=== PATIENT | female | born 2000 | race Caucasian/White ===

== ENCOUNTER 2020-06-21 16:38 | Emergency (ER) | payer BC, MEDICAID, SELFPAY ==
--- NOTE | ~2020-06-21 | CT_ITS ---
EXAMINATION: CT abdomen pelvis wo con EXAM DATE: 06/21/2020 19:13 INDICATION: Right flank pain. TECHNIQUE: Spiral CT of the abdomen and pelvis was performed without contrast. Axial, coronal and sag ittal images were reviewed. The dose-length product (DLP) for this examination was 179.64 mGy-cm. T he exposure was tailored according to patient size (auto mA exposure control), and iterative reconstr uction (ASIR) was used as additional dose reduction technique. There is no prior study for compariso n. FINDINGS: Faint medullary nephrocalcinosis. There is no nephrolithiasis or hydronephrosis. There is IUD which appears to be centrally located within the endometrium, expected position. The bladder is unremarkable. The liver, spleen, adrenal glands and pancreas are unremarkable. Gallbladder is unre markable. No biliary obstruction. There is no retroperitoneal or pelvic lymphadenopathy. The appendix is normal. The stomach and small bowel are unremarkable. There is expected amount of c olonic stool. No free intraperitoneal gas. The heart is normal in size. There are no pericardial or pleural effusions. The lung bases are unremarkable. The bones are unremarkable. IMPRESSION: 1. Faint medullary nephrocalcinosis. No discrete nephrolithiasis or acute findings. 2. IUD in position. Reviewed, dictated and finalized at location A. IMPRESSION: 1. Faint medullary nephrocalcinosis. No discrete nephrolithiasis or acute find ings. 2. IUD in position.
[2020-06-21 17:12] VITALS: BP 116/64; PULSE 55; RESP 20; TEMP 36.9; O2SAT 100
[2020-06-21 17:41] LABS: Basophils Absolute Auto 0.1 K/mm3 (0.0-0.1); Basophils Percent Auto 0.9 % (0.2-1.2); Eosinophils Absolute Auto 0.3 K/mm3 (0-0.3); Eosinophils Percent Auto 3.9 % (0-4.4); Hematocrit 42.9 % (37.0-47.0); Hemoglobin 13.8 g/dL (12.0-15.0); Immature Granulocyte Absolute 0.02 K/mm3 (0.00-0.031); Immature Granulocyte Percent A 0.3 % (0-0.5); Lymphocytes Absolute Auto 3.17 K/mm3 (0.9-3.2); Lymphocytes Percent Auto 40.4 % (18.3-44.2); Mean Corpuscular HGB Conc 32.2 g/dl (32-36); Mean Corpuscular Hemoglobin 27.4 pg (26-34); Mean Corpuscular Volume 85.3 fl (80-100); Mean Platelet Volume 11.4 fl (7.4-10.4); Monocytes Absolute Auto 0.5 K/mm3 (0.1-0.6); Monocytes Percent Auto 6.8 % (2.6-8.5); Neutrophils Absolute Auto 3.8 K/mm3 (1.3-6.7); Neutrophils Percent Auto 47.7 % (45.5-73.1); Platelet Count Result 246 k/mm3 (150-375); Red Blood Count 5.03 M/mm3 (4.2-5.4); Red Cell Distribution Width 14.4 % (11.5-14.5); White Blood Count 7.9 K/mm3 (4.5-10.0)
--- NOTE | 2020-06-21 17:43 | ED.ABDPAIN ---
HPI - Abdominal Pain General Chief Complaint: Abdominal Pain Stated Complaint: from UC, R flank pain Time Seen by Provider: 06/21/20 17:17 Source: patient Mode of arrival: ambulatory Limitations: no limitations History of Present Illness HPI narrative: This is a 19 year old female that presents to the ER for right flank pain x 1 week. Reports the pain is sharp. It is worse with movement. She took ibuprofen at home with little relief. Denies fever, abdominal pain, nausea, vomiting, or hematuria. Related Data Home Medications Medication Instructions Recorded Confirmed No Home Medications 06/21/20 06/21/20 Allergies Allergy/AdvReac Type Severity Reaction Status Date / Time No Known Allergies Allergy Verified 06/21/20 17:22 Review of Systems Review of Systems: Narrative: CONSTITUTIONAL: Denies fever GASTROINTESTINAL: Denies abdominal pain, nausea, vomiting GENITOURINARY: Denies dysuria or hematuria. MUSCULOSKELETAL: Reports back pain, joint pain, and myalgia. All systems reviewed & are unremarkable except as noted in HPI and below PMFSH Past Medical History Medical History (Updated 06/21/20 @ 20:14 by Nichole Bowman PA-C) No active medical problems Social History Social History (Updated 06/21/20 @ 17:48 by Nichole Bowman PA-C) Smoking status: Never smoker Exam Narrative: Exam Narrative: GENERAL: Well-appearing, well-nourished, and in no acute distress. HEAD: Normocephalic, atraumatic. EYES: EOMI. CHEST: Clear to auscultation. No respiratory distress. No wheezes rales or rhonchi HEART: Regular rate and rhythm. No murmur heard. Normal peripheral pulses. ABDOMEN: Soft, nontender, nondistended, normal active bowel sounds. No CVA tenderness EXTREMITIES: Normal range of motion. No edema. SKIN: Warm, dry, no rash. NEURO: No focal deficits. Alert and oriented x3. PSYCH: Normal mood and affect Course Vital Signs Vital signs: Vital Signs Temperature 98.4 F 06/21/20 17:12 Pulse Rate 55 L 06/21/20 17:12 Respiratory Rate 20 06/21/20 17:12 Blood Pressure 116/64 06/21/20 17:12 Pulse Oximetry 100 06/21/20 17:12 Temperature 98.4 F 06/21/20 17:12 Pulse Rate 67 06/21/20 19:07 Respiratory Rate 18 06/21/20 19:07 Blood Pressure 120/67 06/21/20 19:07 Pulse Oximetry 98 06/21/20 19:07 MDM - Abdominal Pain MDM Narrative Medical decision making narrative: Patient presents the emergency department for right flank pain. She is afebrile and nontoxic-appearing. CBC and metabolic panel without concerning findings. UA with red blood cells, 4-6 white blood cells, and trace bacteria. Also with many squamous epithelial cells. This will go for a culture. Patient is asymptomatic. Bedside test is negative. CT of the abdomen and pelvis is without acute intra-abdominal findings. IUD is in position. Patient updated on case findings. She was instructed to follow-up with her primary care doctor. Patient is stable and felt appropriate for further outpatient evaluation. She was given warnings to return to the ER Lab Data Attestation: I reviewed the patient's lab results. Result diagrams: 06/21/20 17:29 06/21/20 17:29 Labs: Lab Results 06/21/20 06/21/20 06/21/20 Range/Units 17:29 17:29 17:29 WBC 7.9 (4.5-10.0) K/mm3 RBC 5.03 (4.2-5.4) M/mm3 Hgb 13.8 (12.0-15.0) g/dL Hct 42.9 (37.0-47.0) % MCV 85.3 (80-100) fl MCH 27.4 (26-34) pg MCHC 32.2 (32-36) g/dl RDW 14.4 (11.5-14.5) % Plt Count 246 (150-375) k/mm3 MPV 11.4 H (7.4-10.4) fl Immature Gran % (Auto) 0.3 (0-0.5) % Neut % (Auto) 47.7 (45.5-73.1) % Lymph % (Auto) 40.4 (18.3-44.2) % [place] % (Auto) 6.8 (2.6-8.5) % Eos % (Auto) 3.9 (0-4.4) % Baso % (Auto) 0.9 (0.2-1.2) % Lymph # (Auto) 3.17 (0.9-3.2) K/mm3 [place] # (Auto) 0.5 (0.1-0.6) K/mm3 Eos # (Auto) 0.3 (0-0.3) K/mm3 Baso # (Auto) 0.1 (0.
[2020-06-21 17:47] LABS: Add Urine Microscopic? YES; Appearance Urine Cloudy (Clear); Bacteria Urine Trace /hpf; Bilirubin Urine Negative (Negative); Blood Urine 3+ (Negative); Color Urine Yellow (Yellow); Glucose Urine UA Negative (Negative); Ketones Urine Negative (Negative); Leukocyte Esterase Ur Trace LEU/UL (Negative); Mucus Urine Few /lpf; Nitrate Urine Negative (Negative); Protein Urine 1+ mg/dL (Negative); RBC Urine >75 /hpf (0-2); Specific Grav Ur 1.028 (1.001-1.035); Squamous Epithelial Cell Urine Many /hpf (Few); Urobilinogen Urine Negative mg/dL (<2.0)
--- NOTE | 2020-06-21 17:48 | PC.NURSE ---
called lab to add hepatic
[2020-06-21 17:56] LABS: Alanine Aminotransferase 10 U/L (4-35); Albumin Level 4.6 g/dL (3.5-5.1); Alkaline Phosphatase 39 U/L (38-126); Anion Gap 10 mmol/L (8-16); Aspartate Amino Transferase 25 U/L (14-36); Bilirubin,Total 0.5 mg/dL (0.2-1.3); Blood Urea Nitrogen 14 mg/dL (7-17); Calcium 9.1 mg/dL (8.4-10.2); Carbon Dioxide 25 mmol/L (22-30); Chloride 103 mmol/L (98-107); Estimated CRCL calculation 87 ml/min; Estimated Glomerular Filt Rate > 60; Glucose 91 mg/dL (65-105); Sodium 138 mmol/L (137-145)
[2020-06-21] MEDS: ACETAMINOPHEN 500 MG TABLET 1000 MG PO (18:19)
--- NOTE | 2020-06-21 18:50 | PC.NURSE ---
Pt in Cat scan at this time
[2020-06-21 19:07] VITALS: BP 120/67; PULSE 67; RESP 18; O2SAT 98
[2020-06-21 20:37] VITALS: BP 122/78; PULSE 78; RESP 18; O2SAT 98
== END 2020-06-21 20:38 | disposition home or self-care (01) ==
PROVIDERS: Physician Assistant; Emergency Provider Emergency Medicine
DX: R10.9 Unspecified abdominal pain (principal)
CPT/HCPCS: 36415; 74176; 80048; 80076; 81001; 81025; 85025; 87086; 87088; 99284; A9270

== ENCOUNTER 2021-10-05 14:31 | Observation (INO) | payer BC, MEDICAID, SELFPAY ==
--- NOTE | 2021-10-05 14:57 | OBADM ---
This patient, Rosas Estrada, admitted to the OB room OB Post 116 for observation. Patient/family oriented to hospital policies and general routines including ID bracelet, bed and alarms, visiting hours, pain management, procedures, bathroom and other care routines, personal items, smoking policy, room service/diet, and visiting hours. Patient/Family are encouraged to report perceived risks to care and to ask questions if they do not understand what they are told or what they should do.
[2021-10-05 15:01] VITALS: BP 113/72; PULSE 82
[2021-10-05 15:40] LABS: Add Urine Microscopic? YES; Amorphous Sediment Urine Few; Appearance Urine Cloudy (Clear); Bacteria Urine Trace /hpf; Bilirubin Urine Negative (Negative); Blood Urine Negative (Negative); Color Urine Yellow (Yellow); Glucose Urine UA Negative (Negative); Ketones Urine Negative (Negative); Leukocyte Esterase Ur 3+ LEU/UL (NEGATIVE); Mucus Urine Rare /lpf; Nitrate Urine Negative (Negative); Protein Urine 1+ mg/dL (Negative); Specific Grav Ur 1.018 (1.001-1.035); Squamous Epithelial Cell Urine Many /hpf (Few); Urobilinogen Urine Negative mg/dL (<2.0); WBC Urine >75 /hpf (0-3)
[2021-10-05 15:56] VITALS: BP 113/72; PULSE 84
--- NOTE | 2021-10-05 15:59 | PC.NURSE ---
1543- SPoke with Dr. Craig, urine reviewed and NST reveiwed. ROM plus negative. Orders received to discharge to home with Macrobid 100mg, BID x7 days.
--- NOTE | 2021-10-08 17:40 | PM.OBTRLD ---
OB - Triage/Final Diagnosis Visit Information Comments/Additional reasons for admission: I have assessed the risk for this patient, Rosas Estrada, and determined that she would benefit from observation care. Evaluation Laboratory results: Laboratory Tests 10/05/21 15:22 Urine Color Yellow Urine Appearance Cloudy H Urine pH 8.0 Ur Specific [place] 1.018 Urine Protein 1+ H Urine Glucose (UA) Negative Urine Ketones Negative Ur Blood (Man) Negative Urine Nitrate Negative Urine Bilirubin Negative Urine Urobilinogen Negative Ur Leukocyte Esterase 3+ H Urine RBC 3-5 H Urine WBC >75 H Ur Squamous Epith Cells Many H Amorphous Sediment Few H Urine Bacteria Trace Urine Mucus Rare Final Diagnosis (1) Vaginal discharge during in third trimester: Code(s): O26.893 - Other specified related conditions, third trimester; N89.8 - Other specified noninflammatory disorders of vagina Status: Acute
== END 2021-10-05 16:00 | disposition home or self-care (01) ==
PROVIDERS: Admitting Provider Obstetrics & Gynecology; Visit Provider Obstetrics & Gynecology
DX: O26.892 Other specified pregnancy related conditions, second trimester (principal); N89.8 Other specified noninflammatory disorders of vagina; Z3A.27 27 weeks gestation of pregnancy
CPT/HCPCS: 59025; 81001; 87086; 87088; G0378; G0379

== ENCOUNTER 2021-11-22 11:08 | Observation (INO) | payer BC, SELFPAY ==
[2021-11-22] VITALS (9 sets, daily range): BP systolic 104; BP diastolic 69; PULSE 91–135; O2SAT 98–100; BMI 24.5
--- NOTE | ~2021-11-22 | US_ITS ---
EXAMINATION: US OB limited w BPP DATE: 11/22/2021 13:47 INDICATION: Decreased movement. Third trimester. TECHNIQUE: Real-time pelvic ultrasound was performed. COMPARISON: None. FINDINGS: There is a single living fetus in vertex presentation. The placenta is posterior. heart rate i s 149 beats per minute (bpm). The amniotic fluid index is 11.5 cm, which is normal. Biophysical profile performed by the technologist: breathing (30 sec sustained breathing in 30 minutes): 2 out of 2 movement (3 gross body movements in 30 minutes): 2 out of 2 tone (one episode of jwmtplg-jbstjtrbn-nxdcntk limb movement): 2 out of 2 Amniotic fluid pocket (2 cm): 2 out of 2 Total score: 8 out of 8 IMPRESSION: 1. Single living fetus in vertex presentation. 2. Biophysical profile 8 out of 8. Reviewed, dictated and finalized at location B. SHAKER
--- NOTE | 2021-11-22 11:08 | OBADM ---
This patient, Rosas Estrada, admitted to the OB room OB Post 115 for observation. Patient/family oriented to hospital policies and general routines including ID bracelet, bed and alarms, visiting hours, pain management, procedures, bathroom and other care routines, personal items, smoking policy, room service/diet, and visiting hours. Patient/Family are encouraged to report perceived risks to care and to ask questions if they do not understand what they are told or what they should do.
[2021-11-22] MEDS: BETAMETHASONE SOD PHOS/ACETATE 30 MG/5 ML VIAL 12 MG IM (12:40)
[2021-11-22] MEDS: TERBUTALINE SULFATE 1 MG/ML VIAL (14:33)
--- NOTE | 2021-11-23 11:35 | PM.OBTRLD ---
OB - Triage/Final Diagnosis Visit Information Comments/Additional reasons for admission: I have assessed the risk for this patient, Rosas Estrada, and determined that she would benefit from observation care. Evaluation Vital signs: Vital Signs - 24 hr 11/22/21 14:32 11/22/21 14:38 11/22/21 14:43 Pulse Oximetry 100 100 99 11/22/21 14:48 11/22/21 14:53 11/22/21 14:58 Pulse Oximetry 98 98 99 11/22/21 15:03 11/22/21 15:08 Pulse Oximetry 100 100 Final Diagnosis (1) contractions: Code(s): O47.00 - False labor before 37 completed weeks of gestation, unspecified trimester Status: Acute
== END 2021-11-22 15:20 | disposition home or self-care (01) ==
PROVIDERS: Admitting Provider Obstetrics & Gynecology; Visit Provider Obstetrics & Gynecology
DX: O47.03 False labor before 37 completed weeks of gestation, third trimester (principal); Z3A.34 34 weeks gestation of pregnancy
CPT/HCPCS: 76815; 76819; 84112; 96372; G0378; G0379; J0702; J3105

== ENCOUNTER 2021-11-23 14:29 | Observation (INO) | payer BC, MEDICAID, SELFPAY ==
[2021-11-23 15:00] VITALS: BP 115/49; PULSE 98
[2021-11-23 15:02] VITALS: BP 102/55; PULSE 95
[2021-11-23 15:15] VITALS: BP 101/53; PULSE 107
[2021-11-23 15:30] VITALS: BP 106/47; PULSE 97
[2021-11-23 15:42] VITALS: BMI 25.8
[2021-11-23 15:45] VITALS: BP 106/51; PULSE 99
[2021-11-23] MEDS: BETAMETHASONE SOD PHOS/ACETATE 30 MG/5 ML VIAL 12 MG IM (16:01)
--- NOTE | 2021-11-23 16:02 | PC.NURSE ---
Notifed Dr Craig of patient status orders to discharge home
--- NOTE | 2021-11-27 07:05 | PM.OBTRLD ---
OB - Triage/Final Diagnosis Visit Information Comments/Additional reasons for admission: I have assessed the risk for this patient, Rosas Estrada, and determined that she would benefit from observation care. Final Diagnosis (1) Vaginal discharge during in third trimester: Code(s): O26.893 - Other specified related conditions, third trimester; N89.8 - Other specified noninflammatory disorders of vagina Status: Acute
== END 2021-11-23 16:15 | disposition home or self-care (01) ==
PROVIDERS: Admitting Provider Obstetrics & Gynecology; Visit Provider Obstetrics & Gynecology
DX: O26.893 Other specified pregnancy related conditions, third trimester (principal); N89.8 Other specified noninflammatory disorders of vagina; Z3A.34 34 weeks gestation of pregnancy
CPT/HCPCS: 96372; G0378; G0379; J0702

== ENCOUNTER 2021-12-10 13:31 | Inpatient (IN) | payer BC, MEDICAID, SELFPAY ==
[2021-12-10] VITALS (60 sets, daily range): BP systolic 86–128; BP diastolic 50–82; PULSE 63–120; RESP 16–18; TEMP 37–37.1; O2SAT 100; BMI 24.5
--- NOTE | 2021-12-10 14:20 | PC.NURSE ---
Unable to see contractions on monitor. [place] adjusted. FHTs 140 with moderate variabilty, accelerations and no decelerations. SVE 4-5/thick/-1.
--- NOTE | 2021-12-10 15:20 | PC.NURSE ---
Contractions seen q q 2-3 min with moderate intensity, lasting 50-60 sec. FHT 140 with accelerations, moderate variability and no decelerations.
--- NOTE | 2021-12-10 16:20 | PC.NURSE ---
Contractions q 2-3 min lasting 50-60 sec and palpate moderate. FHTs 150 with moderate variability, accelerations and no decelerations.
--- NOTE | 2021-12-10 17:15 | PC.NURSE ---
Dr. Craig on unit. Report given. SVE /1. Orders received to admit for labor.
--- NOTE | 2021-12-10 17:16 | PM.IMHP ---
H&P: HPI History of Present Illness Date/Time: 12/10/21 17:16 Stephanie is a 21yo @ 37.2wks who presented to L&D for routine NST due to severe IUGR. She was found to be jordan regularly. No vaginal bleeding or leakage of fluid. She made change from 3cm last week to 5cm today. Good movement. Her is complicated by: - Severe IUGR w/ AC <2%ile, undergoing ANT - Mild anemia Chief Complaint: contractions Review of Systems Review of Systems: All systems reviewed & are unremarkable except as noted in HPI and below (HPI) FORMERLY [facility], [facility] Past Medical History Medical History Encounter for removal of intrauterine contraceptive device (IUD) (~09/2020) HSV-1 (herpes simplex virus 1) infection No active medical problems Family History Family History Grandparent Diabetes mellitus Hypertension Social History Social History Smoking status: Never smoker Alcohol intake: never Substance use: never Gender identity (if verbalized by the patient): Female Sexual Orientation (if Verbalized by the Patient): Straight or Heterosexual Meds Home Medications and Allergies Home Medications Medication Instructions Recorded Confirmed Type [id number] fum-folic ac-om3 1 pkg PO DAILY 10/05/21 11/22/21 History Allergies Allergy/AdvReac Type Severity Reaction Status Date / Time No Known Allergies Allergy Verified 11/22/21 10:15 Exam Const: General: cooperative, healthy appearing, comfortable and no acute distress Resp: Effort & Inspection: normal respiratory effort Cardio: Rate: regular rate GI: GI Palp: Yes Soft to palpation and No Tenderness to palpation present (GI) : Other: FHT's: 140's/ mod migue/ + accels/ no decels - cat 1 TOCO: ctx's q2-3min Cervix: 5/70/-2; bag bulging Membranes: intact Presentation: cephalic Skin: General skin exam: normal color Neuro: General: patient oriented x3 Extrem: General: normal to inspection Psych: Appearance: grossly normal Affect: normal affect Attitude: cooperative Assessment and Plan Assessment and plan (1) IUGR (intrauterine growth restriction): Status: Acute (2) Uterine contractions: Code(s): O47.9 - False labor, unspecified Status: Acute Additional Plan - Admit to L&D for labor/augmentation due to severe IUGR >37wks - Pitocin if contractions space out or no cervical change - Continuous heart monitoring; currently reassuring - GBS negative - anesthesia consult PRN pain
--- NOTE | 2021-12-10 17:20 | PC.NURSE ---
Contractions q 1-4 min with moderate intensity lasting 50-60 sec. FHTs 145 with moderate variability, accelerations and no decelerations.
--- NOTE | 2021-12-10 17:26 | WPDHPUPDATE1 ---
History and Physical Update Update Date/Time: 12/10/21 17:26 History and Physical has been reviewed, including an updated exam of the patient. There are NO changes in the patient's condition. Risks, benefits, and alternatives have been discussed and questions answered. Patient agrees to proceed with procedure.
--- NOTE | 2021-12-10 17:46 | PC.NURSE ---
Pt moved to room 106 for labor.
[2021-12-10] MEDS: LACTATED RINGERS 1,000 ML 999 ML IV CONT ×2 (18:15→19:07)
[2021-12-10 18:27] LABS: Basophils Percent Auto 0.2 % (0.2-1.2); Eosinophils Percent Auto 0.2 % (0-4.4); Hematocrit 33.4 % (37.0-47.0); Hemoglobin 10.6 g/dL (12.0-15.0); Immature Granulocyte Absolute 0.07 K/mm3 (0.00-0.031); Immature Granulocyte Percent A 0.6 % (0-0.5); Lymphocytes Absolute Auto 2.26 K/mm3 (0.9-3.2); Lymphocytes Percent Auto 17.8 % (18.3-44.2); Mean Corpuscular HGB Conc 31.7 g/dl (32-36); Mean Corpuscular Hemoglobin 25.7 pg (26-34); Mean Corpuscular Volume 81.1 fl (80-100); Mean Platelet Volume 10.3 fl (7.4-10.4); Monocytes Absolute Auto 0.8 K/mm3 (0.1-0.6); Monocytes Percent Auto 6.6 % (2.6-8.5); Neutrophils Absolute Auto 9.5 K/mm3 (1.3-6.7); Neutrophils Percent Auto 74.6 % (45.5-73.1); Platelet Count Result 249 k/mm3 (150-375); Red Blood Count 4.12 M/mm3 (4.2-5.4); Red Cell Distribution Width 15.2 % (11.5-14.5); White Blood Count 12.7 K/mm3 (4.5-10.0)
--- NOTE | 2021-12-10 18:39 | LDADM ---
This patient, Rosas Estrada, was admitted to Labor/Delivery/Recovery 106 on 12/10/21 at 13:31. Plans for labor, pain management and were discussed with patient. Patient/family oriented to hospital policies and general routines including ID bracelet, bed and alarms, visiting hours, pain management, procedures, bathroom and other care routines, personal items, smoking policy, room service/diet and guest tray routines, infant security routines, and visiting hours. Patient/Family are encouraged to report perceived risks to care and to ask questions if they do not understand what they are told or what they should do. See OBIX for further documentation.
--- NOTE | 2021-12-10 18:42 | WPDANESEPP ---
Anes - Eval Pre Procedure Procedure: Labor epidural Date/Time: 12/10/21 18:42 Surgeon: Rafa Preop Diagnosis: Abd pain with contractions Pre Op Diagnosis: labor Patient Data Age: 21 Gender: F Height: 1.55 m Weight: 59 kg Last Vital Signs Pulse 63 12/10/21 18:30 BP 114/70 12/10/21 18:30 Allergies Allergy/AdvReac Type Severity Reaction Status Date / Time No Known Allergies Allergy Verified 11/22/21 10:15 Home Medications Medication Instructions Recorded Confirmed Type [id number] fum-folic ac-om3 1 pkg PO DAILY 10/05/21 12/10/21 History Laboratory Tests 12/10/21 12/10/21 12/10/21 18:19 18:19 18:19 WBC 12.7 K/mm3 H K/mm3 (4.5-10.0) RBC 4.12 M/mm3 L M/mm3 (4.2-5.4) Hgb 10.6 g/dL L D g/dL (12.0-15.0) Hct 33.4 % L % (37.0-47.0) MCV 81.1 fl fl (80-100) MCH 25.7 pg L pg (26-34) MCHC 31.7 g/dl L g/dl (32-36) RDW 15.2 % H % (11.5-14.5) Plt Count 249 k/mm3 k/mm3 (150-375) MPV 10.3 fl fl (7.4-10.4) Immature Gran % (Auto) 0.6 % H % (0-0.5) Neut % (Auto) 74.6 % H % (45.5-73.1) Lymph % (Auto) 17.8 % L % (18.3-44.2) [place] % (Auto) 6.6 % % (2.6-8.5) Eos % (Auto) 0.2 % % (0-4.4) Baso % (Auto) 0.2 % % (0.2-1.2) Lymph # (Auto) 2.26 K/mm3 K/mm3 (0.9-3.2) [place] # (Auto) 0.8 K/mm3 H K/mm3 (0.1-0.6) Eos # (Auto) 0.0 K/mm3 K/mm3 (0-0.3) Baso # (Auto) 0.0 K/mm3 K/mm3 (0.0-0.1) Abs Immat Gran (auto) 0.07 K/mm3 H K/mm3 (0.00-0.031) Absolute Neuts (auto) 9.5 K/mm3 H K/mm3 (1.3-6.7) Absolute Nucleated RBC 0.0 K/mm3 K/mm3 (0.0-0.012) Nucleated RBC % 0.0 % % (0.0-0.2) RPR Pending HIV 1&2 Ab/P24 Ag 4thGn Pending Patient hx anesthesia problems: none Family hx anesthesia problems: none Results Review: All pre-operative results and documents have been reviewed as part of the pre-operative evaluation. [facility] Past Medical History Medical History Encounter for removal of intrauterine contraceptive device (IUD) (~09/2020) HSV-1 (herpes simplex virus 1) infection No active medical problems Vaginal discharge during in third trimester Family History Family History Grandparent Diabetes mellitus Hypertension Social History Social History Smoking status: Never smoker Alcohol intake: never Substance use: never Gender identity (if verbalized by the patient): Female Sexual Orientation (if Verbalized by the Patient): Straight or Heterosexual Exam Day of Procedure 12/10/21 18:42 Patient weight: normal Airway: Mallampati scale class II Neurological: alert and oriented
[2021-12-10 19:19] LABS: HIV 1/2 Ab P24 Ag Result Negative (Negative)
--- NOTE | 2021-12-10 20:56 | PM.OBPNLAB ---
Pain Control Date/time seen: 12/10/21 20:56 Pain control: epidural Pelvic Exam Dilation (cm): 6 Effacement (%): 90 station: -1 Amniotic membrane status: Ruptured (AROM, clear 2054) Contractions Monitor mode: External Contraction frequency: 2 (-4) Contraction pattern: Regular Status status: Category l Assessment and Plan Assessment: active labor Plan: continuous present management
--- NOTE | 2021-12-10 21:33 | PM.OBPRVD ---
OB - Delivery Note Procedure Delivery date: 12/10/21 events: Labor Augmentation (IUGR) Intrapartal events: Precipitous Labor < 3 hours Delivery augmentation: rupture of membranes Delivery monitor: external FHT and external uterine Route of delivery: Laceration Description: None Specimen: Yes (placenta) Quantitative Blood Loss (ml): 100 Anesthesia type: Epidural Disposition: floor [place] Baby Date of : 12/10/21 Time of : 21:20 Weeks of gestation at delivery: 37 (.2) gender: Female Weight (pounds): 5 Weight (ounces): 7 presentation: vertex position: Left Occiput Anterior Placenta delivery description: Expressed cord vessel description: 3 Vessels and Delayed Cord Clamping score one minute: 9 score five minutes: 9 Narrative: AROM was performed and she was found to be 6 cm. Approximately 20 minutes later she endorsed significant vaginal pressure and was found to be completely dilated. She pushed for 2 contractions and delivered the head over intact perineum. No nuchal cord was palpated. She easily delivered the infant's shoulders and body without complication. The infant was immediately placed skin to skin and had vigorous cry. Delayed cord clamping was performed. The umbilical cord was then clamped and cut. A segment of the cord was collected for cord gases. The remaining cord blood was collected for typing. With Pitocin running and gentle downward traction on the cord, the placenta delivered without complications. Bimanual massage was performed and good uterine tone and minimal bleeding was noted. She was examined and no lacerations were noted. Sponge, lap, instrument, and needle counts were correct at the end of the procedure. Mom and baby were left bonding in the birthing suite in stable condition. [facility] Delivery Billing Delivery Delivery: Delivery Charge
[2021-12-10] MEDS: COSYNTROPIN 0.25 MG/ML VIAL 1 MG IV PUSH (21:40)
[2021-12-10] MEDS: OXYTOCIN 30 UNITS/NS 500 ML 30 UNITS/500 ML BAG 999 UNITS IV CONT (21:43)
[2021-12-10] MEDS: OXYTOCIN 30 UNITS/NS 500 ML 30 UNITS/500 ML BAG 125 UNITS IV CONT (22:20)
[2021-12-11] VITALS: BP 116/62; PULSE 95; RESP 18; TEMP 36.7
--- NOTE | 2021-12-11 | ADMGEN ---
This patient, Rosas Estrada, was admitted to Labor/Delivery/Recovery 284. Patient/family oriented to hospital policies and general routines including ID bracelet, bed and alarms, visiting hours, pain management, procedures, bathroom and other care routines, personal items, smoking policy, room service/diet, and visiting hours. Information on how to activate the Rapid Response Team has been discussed. Patient/Family are encouraged to report perceived risks to care and to ask questions if they do not understand what they are told or what they should do.
[2021-12-11] MEDS: ACETAMINOPHEN 325 MG TABLET 650 MG (00:11)
[2021-12-11] MEDS: IBUPROFEN 600 MG TABLET (00:11)
[2021-12-11 04:00] VITALS: BP 100/56; PULSE 71; RESP 18; TEMP 37
[2021-12-11 05:32] LABS: Hemoglobin 9.9 g/dL (12.0-15.0)
[2021-12-11] MEDS: ACETAMINOPHEN 325 MG TABLET 650 MG PO ×3 (05:54→18:30)
[2021-12-11] MEDS: IBUPROFEN 600 MG TABLET PO ×3 (05:55→18:29)
[2021-12-11 07:30] VITALS: BP 91/56; PULSE 63; RESP 16; TEMP 36.9; O2SAT 100
[2021-12-11] MEDS: POLYSACCHARIDE IRON COMPLEX 150 MG CAPSULE PO ×2 (09:42→18:30)
[2021-12-11] MEDS: MULTIVIT/MIN/PREN/FOL AC/IRON TABLET 1 TAB PO (09:42)
[2021-12-11] MEDS: DOCUSATE SODIUM 100 MG CAPSULE PO ×2 (09:42→18:30)
[2021-12-11 11:37] VITALS: BP 113/63; PULSE 81; RESP 16; TEMP 36.8; O2SAT 100
--- NOTE | 2021-12-11 12:48 | WPDANLDPN2 ---
Anes-Prog Note L&D Date/Time: 12/11/21 12:48 Comfortable throughout: labor and delivery Neuraxial method: epidural Epidural/Spinal procedure site: clean & non-tender Neuro status: Neuro function grossly intact. Headache 1-12/20, frontal, no photophobia Cardiovascular status: normal Vital Signs: Last Vital Signs Temp 36.8 C 12/11/21 11:37 Pulse 81 12/11/21 11:37 Resp 16 12/11/21 11:37 BP 113/63 12/11/21 11:37 Pulse Ox 100 12/11/21 11:37 Pain score (VAS): 12/20 I/O: Intake & Output 12/10/21 12/11/21 12/11/21 23:59 07:59 15:59 Intake Total 1700 Output Total 100 75 Balance 1600 -75 Post-procedural complaints: other Patient feedback: Patient satisfied with anesthetic care. Other findings: headache, epidural removed with tip intact
--- NOTE | 2021-12-11 12:53 | PM.OBPNVD ---
OB - PN: Subj Subjective Date/time seen: 12/11/21 12:53 Narrative: PPD#1 She reports doing well today. Her bleeding is analyst competitive intelligence. Her pain is controlled. She was having sharp back pain after her multiple epidural tries; but reports it's better with the pain meds and heating pad. She did have a pretty severe headache, but that is also improved after meds/caffeine. She is tolerating regular diet, voiding, passing gas, and ambulating without issues. She is breast feeding. OB - PN: Obj Data Labs CBC & Chem 7: 12/11/21 04:01 Labs: Laboratory Results - last 24 hr 12/10/21 12/10/21 12/10/21 18:19 18:19 18:19 WBC 12.7 H RBC 4.12 L Hgb 10.6 L D Hct 33.4 L MCV 81.1 MCH 25.7 L MCHC 31.7 L RDW 15.2 H Plt Count 249 MPV 10.3 Immature Gran % (Auto) 0.6 H Neut % (Auto) 74.6 H Lymph % (Auto) 17.8 L [place] % (Auto) 6.6 Eos % (Auto) 0.2 Baso % (Auto) 0.2 Lymph # (Auto) 2.26 [place] # (Auto) 0.8 H Eos # (Auto) 0.0 Baso # (Auto) 0.0 Abs Immat Gran (auto) 0.07 H Absolute Neuts (auto) 9.5 H Absolute Nucleated RBC 0.0 Nucleated RBC % 0.0 HIV 1&2 Ab/P24 Ag 4thGn Negative Blood Type A Positive Antibody Screen Negative 12/11/21 04:01 WBC RBC Hgb 9.9 L Hct 32.0 L MCV MCH MCHC RDW Plt Count MPV Immature Gran % (Auto) Neut % (Auto) Lymph % (Auto) [place] % (Auto) Eos % (Auto) Baso % (Auto) Lymph # (Auto) [place] # (Auto) Eos # (Auto) Baso # (Auto) Abs Immat Gran (auto) Absolute Neuts (auto) Absolute Nucleated RBC Nucleated RBC % HIV 1&2 Ab/P24 Ag 4thGn Blood Type Antibody Screen OB - PN A/P Assessment and Plan (1) Vaginal delivery: Code(s): O80 - Encounter for full-term uncomplicated delivery Status: Acute Plan day: 1 Plan: routine care and discharge home (tomorrow) Comments: - Pelvic rest; take meds as prescribed - ER return precautions: fever, n/v/abd pain, bleeding, HTN Time Spent With Patient Time: Total time spent is greater than 50% in coordination of care (as documented) at patient's floor/unit and/or counseling patient: Review of Systems Constitutional: Constitutional: Denies chills, Denies fever(s) and Reports headache(s) Eyes: Eyes: Denies change in vision ENT: Denies dizziness and Denies headache(s) Cardiovascular: Cardiovascular: Denies chest pain, Denies palpitations and Denies dyspnea Respiratory: Respiratory: Denies cough and Denies dyspnea Gastrointestinal: Gastrointestinal: Denies nausea and Denies vomiting Musculoskeletal: Musculoskeletal: Reports back pain Neurologic: Denies dizziness and Denies headache(s) Endocrine: Endocrine: Denies palpitations Exam Const: General: cooperative, comfortable and no acute distress Orientation/consciousness: patient oriented x3 Resp: Effort & Inspection: normal respiratory effort Auscultation: clear to auscultation bilaterally Cardio: Rate: regular rate GI: Inspection: non-distended GI Palp: No abdominal tenderness and Yes Soft to palpation Auscultation: normal bowel sounds : Other: fundus firm Skin: General skin exam: normal color Neuro: General: patient oriented x3 Extrem: General: normal to inspection Psych: Appearance: grossly normal Affect: normal affect Attitude: cooperative
--- NOTE | 2021-12-11 14:36 | PC.NURSE ---
0720 - Primary RN reported mom bottle fed infant at 0720 and encouraged pt to call out for assistance with . 1220 - Primary RN reported Mom bottle fed infant.
[2021-12-11 16:30] VITALS: BP 101/64; PULSE 81; RESP 18; TEMP 36.5; O2SAT 100
[2021-12-11 16:48] LABS: Rapid Plasma Reagin Non-Reactive (NonReactive)
--- NOTE | 2021-12-11 17:12 | PM.OBDSVD ---
DS: Admitting Diagnosis Discharge Date 12/12/21 Admitting Diagnosis contractions DS: Discharge Diagnosis Discharge Diagnosis (1) Vaginal delivery: Code(s): O80 - Encounter for full-term uncomplicated delivery Status: Acute (2) IUGR (intrauterine growth restriction): Status: Acute OB - DS: Summary OB Procedures : NST and Ultrasound OB Procedures Intrapartum: Spontaneous Vag Delivery OB Procedures: : None Peripartum Data Delivery Method: Natural Vaginal Laceration Description: None complications: none 1: Gender: Female Disposition of : home Status at Discharge Functional status at discharge: independent ambulation Overall status at discharge: patient is back to baseline Time Spent with Patient Time attestation: Total time spent providing and/or coordinating discharge services: Time spent: Less than 30 minutes Exam Const: General: cooperative, healthy appearing, comfortable and no acute distress Orientation/consciousness: patient oriented x3 Resp: Effort & Inspection: normal respiratory effort Auscultation: clear to auscultation bilaterally Cardio: Rate: regular rate GI: Inspection: non-distended GI Palp: No abdominal tenderness and Yes Soft to palpation Auscultation: normal bowel sounds : Other: fundus firm Skin: General skin exam: normal color Neuro: General: patient oriented x3 Extrem: General: normal to inspection Psych: Appearance: grossly normal Affect: normal affect Attitude: cooperative DS: Data Data Completed and Pending Pending studies at discharge: Pending at discharge 12/11/21 07:36 Surgical [PTH] Routine Labs on day of discharge: Labs from last 24 hours 12/11/21 12/10/21 12/10/21 04:01 18:19 18:19 WBC RBC Hgb 9.9 L Hct 32.0 L MCV MCH MCHC RDW Plt Count MPV Immature Gran % (Auto) Neut % (Auto) Lymph % (Auto) [place] % (Auto) Eos % (Auto) Baso % (Auto) Lymph # (Auto) [place] # (Auto) Eos # (Auto) Baso # (Auto) Abs Immat Gran (auto) Absolute Neuts (auto) Absolute Nucleated RBC Nucleated RBC % RPR HIV 1&2 Ab/P24 Ag 4thGn Negative Blood Type A Positive Antibody Screen Negative 12/10/21 12/10/21 18:19 18:19 WBC 12.7 H RBC 4.12 L Hgb 10.6 L D Hct 33.4 L MCV 81.1 MCH 25.7 L MCHC 31.7 L RDW 15.2 H Plt Count 249 MPV 10.3 Immature Gran % (Auto) 0.6 H Neut % (Auto) 74.6 H Lymph % (Auto) 17.8 L [place] % (Auto) 6.6 Eos % (Auto) 0.2 Baso % (Auto) 0.2 Lymph # (Auto) 2.26 [place] # (Auto) 0.8 H Eos # (Auto) 0.0 Baso # (Auto) 0.0 Abs Immat Gran (auto) 0.07 H Absolute Neuts (auto) 9.5 H Absolute Nucleated RBC 0.0 Nucleated RBC % 0.0 RPR Non-reactive HIV 1&2 Ab/P24 Ag 4thGn Blood Type Antibody Screen Discharge Plan Discharge Attending physician on discharge: Kimberlyn Craig Discharging Clinician: Kimberlyn Craig Anticipated Discharge Date/Time: 12/12/21 08:00 Patient Disposition: Home, Self-Care Activity: may shower, may drive after 2 weeks and pelvic rest Diet: regular Patient Instructions: Antibiotic Form Stand Alone Forms: General Discharge Information Follow-up/Referrals: Kimberlyn Craig MD [Physician] - 4 Weeks Discharge Medications: New acetaminophen [Mapap (acetaminophen)] 325 mg Tablet 650 mg PO Q6H PRN (Reason: Mild Pain (1-3) Or Headache) Qty: 60 RF: 0 ibuprofen 600 mg Tablet 600 mg PO Q6H PRN (Reason: Cramping) Qty: 40 RF: 0 Continued [id number] fum-folic ac-om3 [id number] mg-mcg-mg Combo Pack 1 pkg PO DAILY 90 Days Qty: 90 RF: 3 Date of admission: 12/10/21 13:31 Primary Care Provider: PHYSICIAN,WEB SITE SPECIALIST Admitting Provider: Arnulfo Boggs Attending physician on admission: Arnulfo Boggs Condition: Stable
[2021-12-11 18:30] VITALS: BP 112/65; PULSE 76; RESP 18; TEMP 37
[2021-12-11] MEDS: TETANUS,DIPHTHERIA,AC PERTUSSIS ADULT (0.5 ML) BOOSTRIX IM (22:36)
[2021-12-12] MEDS: IBUPROFEN 600 MG TABLET PO ×3 (00:42→12:32)
[2021-12-12] MEDS: ACETAMINOPHEN 325 MG TABLET 650 MG PO ×3 (00:43→12:33)
[2021-12-12 08:00] VITALS: PULSE 76; RESP 18; O2SAT 100
[2021-12-12 08:05] VITALS: BP 107/66; PULSE 70; RESP 16; TEMP 37; O2SAT 100
[2021-12-12] MEDS: POLYSACCHARIDE IRON COMPLEX 150 MG CAPSULE PO (10:22)
[2021-12-12] MEDS: MULTIVIT/MIN/PREN/FOL AC/IRON TABLET 1 TAB PO (10:22)
[2021-12-12] MEDS: DOCUSATE SODIUM 100 MG CAPSULE PO (10:22)
--- NOTE | 2021-12-13 10:02 | PM.OBDSVD ---
DS: Admitting Diagnosis Discharge Date 12/12/21 Admitting Diagnosis contractions DS: Discharge Diagnosis Discharge Diagnosis (1) Vaginal delivery: Code(s): O80 - Encounter for full-term uncomplicated delivery Status: Acute (2) IUGR (intrauterine growth restriction): Status: Acute OB - DS: Summary OB Procedures : NST and Ultrasound OB Procedures Intrapartum: Spontaneous Vag Delivery OB Procedures: : None Peripartum Data Delivery Method: Natural Vaginal Laceration Description: None complications: none [place] 1: Gender: Female Disposition of : home Status at Discharge Functional status at discharge: independent ambulation Overall status at discharge: patient is back to baseline Time Spent with Patient Time attestation: Total time spent providing and/or coordinating discharge services: Time spent: Less than 30 minutes Exam Const: General: cooperative, healthy appearing, comfortable and no acute distress Orientation/consciousness: patient oriented x3 Resp: Effort & Inspection: normal respiratory effort Auscultation: clear to auscultation bilaterally Cardio: Rate: regular rate GI: Inspection: non-distended GI Palp: No abdominal tenderness and Yes Soft to palpation Auscultation: normal bowel sounds : Other: fundus firm Skin: General skin exam: normal color Neuro: General: patient oriented x3 Extrem: General: normal to inspection Psych: Appearance: grossly normal Affect: normal affect Attitude: cooperative DS: Data Data Completed and Pending Pending studies at discharge: Pending at discharge 12/11/21 07:36 Surgical [PTH] Routine Discharge Plan Discharge Attending physician on discharge: Kimberlyn Craig Discharging Clinician: Kimberlyn Craig Anticipated Discharge Date/Time: 12/12/21 08:00 Patient Disposition: Home, Self-Care Activity: may shower, may drive after 2 weeks and pelvic rest Diet: regular Discharge Instructions: Education: Mom and Baby Guide Given to: Mother Follow-Up: Call your delivering provider's office for an appointment to be seen in: 4 Weeks Mom and baby should come to the [facility] for the follow-up appointment. Appointment Date/Time: Tuesday, December 14, 2021 at 11:00 am What to expect at your follow-up visit: Blood Pressure Check Physical Assessment Call [phone] if you are unable to keep your appointment time. BREAST CARE: * Wear a snug supportive bra. * For engorgement discomfort: Breast Feeding: * Apply warm moist washcloths * Express milk as needed to relieve engorgement * Wear loose clothing Bottle Feeding: * May apply ice packs * For sore nipples: * Identify correct latch-on * Apply warm moist washcloths before and after nursing * Air dry nipples after nursing * May apply Lansinoh cream to nipples EPISIOTOMY/PERINEAL CARE: * Until bleeding stops, use your britt bottle after urinating * Change your pad frequently throughout the day * You may take sitz baths several times a day (fill your bathtub with warm water and soak for 20 minutes.) Do NOT bathe in the water * No tub baths until seen by your physician - You may shower ACTIVITY: * Rest as much as possible. * Do not exercise or lift anything heavier than your baby (such as laundry or other children.) * Avoid stairs or driving as much as possible. * Do not put anything into the vagina. No douching, tampons, or sexual activity until seen by physician. NOTIFY PHYSICIAN IF YOU HAVE ANY QUESTIONS OR IF ANY OF THE FOLLOWING SYMPTOMS OCCUR: * If your vaginal bleeding becomes foul smelling. * If your vaginal bleeding becomes more heavy than a period or if your bleeding changes from pink to bright red. However, you may pass an occasional walnut-sized clot once or twice for the first we
[2021-12-14 11:40] VITALS: BP 114/68; PULSE 88; RESP 20; TEMP 37.2; O2SAT 100
== END 2021-12-12 12:37 | disposition home or self-care (01) | DRG 806 ==
LOC: ANHOB2 12-11 17:13 → ANHLDR 12-13 10:03 → ANHOB2 12-13 10:03 → ANHOBPP 12-13 10:03
PROVIDERS: Admitting Provider Obstetrics & Gynecology; Visit Provider Obstetrics & Gynecology
DX: O36.5930 Maternal care for other known or suspected poor fetal growth, third trimester, not applicable or unspecified (principal); O98.32 Other infections with a predominantly sexual mode of transmission complicating childbirth; Z37.0 Single live birth; Z23 Encounter for immunization; Z3A.37 37 weeks gestation of pregnancy; B00.9 Herpesviral infection, unspecified; O62.3 Precipitate labor; O99.02 Anemia complicating childbirth; D64.9 Anemia, unspecified
CPT/HCPCS: 36415; 85014; 85018; 85025; 86592; 86703; 86850; 86900; 86901; 88307; 90471; 90653; 90715; A9270; G0008; G0432; J0834; J2590; J2795; J7120

== ENCOUNTER 2021-12-10 13:31 | Outpatient (RCR) | payer BC, MEDICAID, SELFPAY ==
[2021-12-06 12:58] VITALS: BP 97/57; PULSE 117
[2021-12-10] VITALS (21 sets, daily range): BP systolic 105–114; BP diastolic 59–74; PULSE 78–128; O2SAT 98–100
--- NOTE | ~2021-12-10 | US_ITS ---
EXAMINATION: US OB BPP wo non-stress DATE: 12/06/2021 13:22 CATERING DIRECTOR INDICATION: Small for gestational age TECHNIQUE: Real-time transabdominal obstetric ultrasound. FINDINGS: No prior studies for comparison. There is a single living fetus in vertex presentation. The placenta is posterior without placenta pr evia. cardiac activity and movement is noted with a heart rate of 143 beats per minute. Biophysical profile: breathin of 2 movement: 2 of 2 tone: 2 of 2 Amniotic flud pocket: 2 of 2 Total score: 8 of 8 IMPRESSION: 1. Single living intrauterine in vertex presentation. 2: Total biophysical profile score of 8/8. Reviewed, dictated and finalized at location B. RING DIRECTOR
== END 2021-12-14 20:53 | disposition home or self-care (01) ==
LOC: ANHOBOP 13:31
PROVIDERS: Visit Provider Obstetrics & Gynecology
DX: O36.5930 Maternal care for other known or suspected poor fetal growth, third trimester, not applicable or unspecified (principal); Z3A.36 36 weeks gestation of pregnancy
CPT/HCPCS: 59025; 76819

== ENCOUNTER 2021-12-14 13:27 | Outpatient (CLI) | payer BC, MEDICAID, SELFPAY ==
[2021-12-14] VITALS (21 sets, daily range): BP systolic 108–116; BP diastolic 65–77; PULSE 51–84; O2SAT 100
--- NOTE | 2021-12-14 13:30 | PC.NURSE ---
Pt here from follow up visit, informed RN that she had a headache, suspected spinal headache. See anesthesia note regarding consult and blood patch.
--- NOTE | 2021-12-14 13:33 | P.PNAN_ITS ---
Anes - Eval Pre Procedure Procedure: Epidural blood patch Date/Time: 12/14/21 13:33 Preop Diagnosis: Post dural puncture headache Pre Op Diagnosis: Blood patch Patient Data Age: 21 Gender: F Height: Weight: Allergies Allergy/AdvReac Type Severity Reaction Status Date / Time No Known Allergies Allergy Verified 11/22/21 10:15 Home Medications Medication Instructions Recorded Confirmed Type acetaminophen [Mapap 650 mg PO Q6H PRN #60 tablet 12/11/21 Rx (acetaminophen)] ibuprofen 600 mg PO Q6H PRN #40 tablet 12/11/21 Rx -xqls fum-folic ac-om3 1 pkg PO DAILY 90 Days #90 ea 12/11/21 12/10/21 Rx Patient hx anesthesia problems: none Family hx anesthesia problems: none Results Review: All pre-operative results and documents have been reviewed as part of the pre-operative evaluation. [facility] Past Medical History Medical History Encounter for removal of intrauterine contraceptive device (IUD) (~09/2020) HSV-1 (herpes simplex virus 1) infection No active medical problems Vaginal discharge during in third trimester Family History Family History Grandparent Diabetes mellitus Hypertension Social History Social History Smoking status: Never smoker Second hand tobacco smoke exposure: No Alcohol intake: never Substance use: never Gender identity (if verbalized by the patient): Female Sexual Orientation (if Verbalized by the Patient): Straight or Heterosexual Spiritual care concerns: No Exam Day of Procedure 12/14/21 13:33 Patient weight: normal Heart: regular rate and rhythm Lungs: normal air movement Airway: Mallampati scale class II Neurological: alert and oriented Risks: Pt presents to OB department with headache, 10/10 while sitting, 3/10 lying flat. Headache is predominantly in the frontal area and also posterior neck. Pt has photophobia. Pt requests epidural blood patch.
--- NOTE | 2021-12-14 14:04 | P.PCNANE_ITS ---
Anes - Epidural Blood Patch PN Date/Time: 12/14/21 14:04 Consent: I have discussed with the patient/family/POA, the rationale of a lumbar epidural autologous blood patch for the treatment of post-dural puncture headache (spinal headache), including associated potential risks, benefits, comp lications and side effects. I have also discussed more conservative treatment options such as intravenous hydration, caffeine and non-prescription analgesics. The patient/family/POA, understand(s) and wish(es) to proceed with epidural autologous blood patch as treatment for the patient's post-dural puncture headache. Time-Out: A pre-procedural Time-Out was completed immediately before starting the procedure and confirmed: Patient Identification, Site, Procedure, Patient Position and the Availability of Requisite Equipment. Clinical Indications: LORT to air, 4cm to EDS easily, 15 ml blood drawn sterilely form left AC and iinjected sterilely into the Epidural space. Pt with immediate relief of headache. positioned supine with HOB elevated 20 degrees, VSS throughout. Written Discharge instructions given to patient. Epidural Insertion Note Patient position: sitting Skin prep: chlorhexidine Needle: 18 gauge Tuohy-Schliff Technique: loss of resistance Skin anesthesia: lidocaine 1% Observations: tolerated well Complications: none
== END 2021-12-14 14:50 | disposition home or self-care (01) ==
LOC: ANHOBOP 13:31 → ANHOBPP 13:32
PROVIDERS: Visit Provider Anesthesiology
DX: O89.4 Spinal and epidural anesthesia-induced headache during the puerperium (principal)
CPT/HCPCS: 62273; 99199

== ENCOUNTER 2022-05-06 15:01 | Outpatient (CLI) | payer BC, MEDICAID, SELFPAY ==
--- NOTE | ~2022-05-06 | US_ITS ---
EXAMINATION: US pelvic complete w TV DATE: 05/06/2022 15:39 INDICATION: Vaginal bleeding Comparison:No prior studies for comparison. TECHNIQUE: Multiple transabdominal and endovaginal sonographic images of the pelvis performed. FINDINGS: The uterus measures 8.2 x 3.9 x 5.6 cm. The endometrial complex measures 3 mm. There is an IUD in the endometrium. The right ovary measures 3.8 x 2.2 x 3.2 cm and the left ovary measures 1.9 x 1.6 x 1.6 cm. There is right ovarian cyst measuring 2.7 cm. There are small follicles in each ovary. Normal doppler signal i n both ovaries. There is no free fluid in the pelvis. There are no abnormal masses seen on either side. IMPRESSION: 1. Right ovarian cyst measuring 2.7 cm. Reviewed, dictated and finalized at location A.
== END 2022-05-06 15:02 | disposition home or self-care (01) ==
PROVIDERS: PCP Physician Assistant; Visit Provider Obstetrics & Gynecology
DX: R10.2 Pelvic and perineal pain (principal); N93.9 Abnormal uterine and vaginal bleeding, unspecified; N83.201 Unspecified ovarian cyst, right side
CPT/HCPCS: 76830; 76856

== ENCOUNTER 2023-03-04 14:40 | Outpatient (RCR) | payer BC, MEDICAID, SELFPAY ==
[2023-03-04 15:25] LABS: Basophils Percent Auto 0.4 % (0.2-1.2); Eosinophils Percent Auto 0.4 % (0-4.4); Hematocrit 37.4 % (37.0-47.0); Hemoglobin 11.9 g/dL (12.0-15.0); Immature Granulocyte Absolute 0.02 K/mm3 (0.00-0.031); Immature Granulocyte Percent A 0.2 % (0-0.5); Lymphocytes Absolute Auto 2.32 K/mm3 (0.9-3.2); Lymphocytes Percent Auto 24.2 % (18.3-44.2); Mean Corpuscular HGB Conc 31.8 g/dl (32-36); Mean Corpuscular Hemoglobin 26.9 pg (26-34); Mean Corpuscular Volume 84.4 fl (80-100); Mean Platelet Volume 12.1 fl (7.4-10.4); Monocytes Absolute Auto 0.5 K/mm3 (0.1-0.6); Monocytes Percent Auto 5.5 % (2.6-8.5); Neutrophils Absolute Auto 6.6 K/mm3 (1.3-6.7); Neutrophils Percent Auto 69.3 % (45.5-73.1); Platelet Count Result 240 k/mm3 (150-375); Red Blood Count 4.43 M/mm3 (4.2-5.4); Red Cell Distribution Width 13.9 % (11.5-14.5); White Blood Count 9.6 K/mm3 (4.5-10.0)
[2023-03-04 16:28] LABS: Hepatitis B Surface Antigen Negative (Negative)
[2023-03-05 13:48] LABS: Rapid Plasma Reagin Non-Reactive (NonReactive)
[2023-03-09 07:47] LABS: Varicella IgG Antibody <135.00 Index (>=165.00)
== END 2023-06-02 23:59 | disposition home or self-care (01) ==
LOC: ANHLAB 14:40
PROVIDERS: PCP Physician Assistant; Visit Provider Student in an Organized Health Care Education/Training Program
DX: N94.89 Other specified conditions associated with female genital organs and menstrual cycle (principal)
CPT/HCPCS: 36415; 84702; 85025; 86592; 86644; 86747; 86762; 86787; 86850; 86900; 86901; 87086; 87340

== ENCOUNTER 2023-06-30 13:48 | Outpatient (CLI) | payer BC, MEDICAID, SELFPAY ==
[2023-06-30 14:30] LABS: Alanine Aminotransferase 15 U/L (6-35); Albumin Level 3.6 g/dL (3.5-5.1); Alkaline Phosphatase 48 U/L (38-126); Anion Gap 6 mmol/L (8-16); Aspartate Amino Transferase 25 U/L (14-36); Bilirubin,Total 0.5 mg/dL (0.2-1.3); Blood Urea Nitrogen 8 mg/dL (7-17); Calcium 8.2 mg/dL (8.4-10.2); Carbon Dioxide 23 mmol/L (22-30); Chloride 105 mmol/L (98-107); Estimated Glomerular Filt Rate > 60; Glucose 98 mg/dL (65-110); Potassium 3.3 mmol/L (3.4-5.0); Sodium 134 mmol/L (137-145)
[2023-07-05 16:25] LABS: Chenodeoxycholic Acid 2.1 umol/L (< OR = 3.9); Cholic Acid 1.5 umol/L (< OR = 2.8); Deoxycholic Acid 1.3 umol/L (< OR = 2.3); Total Bile Acids 4.9 umol/L (< OR = 8.3)
== END 2023-06-30 13:49 | disposition home or self-care (01) ==
LOC: ANHLAB 13:48
PROVIDERS: PCP Physician Assistant; Visit Provider Obstetrics & Gynecology
DX: Z34.90 Encounter for supervision of normal pregnancy, unspecified, unspecified trimester (principal); L29.9 Pruritus, unspecified; Z3A.00 Weeks of gestation of pregnancy not specified
CPT/HCPCS: 36415; 80053; 82542

== ENCOUNTER 2023-07-07 08:58 | Outpatient (CLI) | payer BC, MEDICAID, SELFPAY ==
[2023-07-07 10:41] LABS: Glucose 1 Hour PP 50gm Dose 110 mg/dL
[2023-07-07 10:55] LABS: Basophils Percent Auto 0.5 % (0.2-1.2); Eosinophils Absolute Auto 0.1 K/mm3 (0-0.3); Eosinophils Percent Auto 0.6 % (0-4.4); Hematocrit 32.1 % (37.0-47.0); Hemoglobin 9.7 g/dL (12.0-15.0); Immature Granulocyte Absolute 0.07 K/mm3 (0.00-0.031); Immature Granulocyte Percent A 0.9 % (0-0.5); Lymphocytes Absolute Auto 1.69 K/mm3 (0.9-3.2); Lymphocytes Percent Auto 21.5 % (18.3-44.2); Mean Corpuscular HGB Conc 30.2 g/dl (32-36); Mean Corpuscular Hemoglobin 26.3 pg (26-34); Mean Platelet Volume 10.7 fl (7.4-10.4); Monocytes Absolute Auto 0.5 K/mm3 (0.1-0.6); Monocytes Percent Auto 6.6 % (2.6-8.5); Neutrophils Absolute Auto 5.5 K/mm3 (1.3-6.7); Neutrophils Percent Auto 69.9 % (45.5-73.1); Platelet Count Result 252 k/mm3 (150-375); Red Blood Count 3.69 M/mm3 (4.2-5.4); Red Cell Distribution Width 14.1 % (11.5-14.5); White Blood Count 7.9 K/mm3 (4.5-10.0)
[2023-07-07 11:18] LABS: HIV 1/2 Ab P24 Ag Result Negative (Negative)
== END 2023-07-07 08:59 | disposition home or self-care (01) ==
PROVIDERS: PCP Physician Assistant; Visit Provider Obstetrics & Gynecology
DX: Z34.90 Encounter for supervision of normal pregnancy, unspecified, unspecified trimester (principal); Z3A.00 Weeks of gestation of pregnancy not specified
CPT/HCPCS: 36415; 82947; 85025; 86703; G0432

== ENCOUNTER 2023-08-18 13:28 | Observation (INO) | payer BC, MEDICAID, SELFPAY ==
[2023-08-18 13:49] VITALS: BP 110/69; PULSE 106
[2023-08-18 13:57] VITALS: BMI 25.6
--- NOTE | 2023-08-18 13:57 | LDADM ---
This patient, Rosas Estrada, was admitted to OB Post 116 on 08/18/23 at 13:28. Plans for labor, pain management and were discussed with patient. Patient/family oriented to hospital policies and general routines including ID bracelet, bed and alarms, visiting hours, pain management, procedures, bathroom and other care routines, personal items, smoking policy, room service/diet and guest tray routines, security routines, and visiting hours. Patient/Family are encouraged to report perceived risks to care and to ask questions if they do not understand what they are told or what they should do. See OBIX for further documentation.
[2023-08-18 14:00] VITALS: BP 106/64; PULSE 90
[2023-08-18 14:15] VITALS: BP 104/61; PULSE 90
[2023-08-18 14:30] VITALS: BP 105/67; PULSE 92
[2023-08-18 14:45] VITALS: BP 100/61; PULSE 93
[2023-08-18 15:00] VITALS: BP 106/64; PULSE 105
--- NOTE | 2023-08-19 11:29 | PM.OBTRLD ---
OB - Triage/Final Diagnosis Visit Information Comments/Additional reasons for admission: I have assessed the risk for this patient, Rosas Estrada, and determined that she would benefit from observation care. Evaluation Vital signs: Vital Signs - 24 hr 08/18/23 13:49 08/18/23 14:00 08/18/23 14:15 Pulse Rate 106 H 90 90 Blood Pressure 110/69 106/64 104/61 Oxygen Delivery 08/18/23 14:30 08/18/23 14:45 08/18/23 15:00 Pulse Rate 92 93 105 H Blood Pressure 105/67 100/61 106/64 Oxygen Delivery 08/18/23 13:57 Pulse Rate Blood Pressure Oxygen Delivery Room Air Final Diagnosis (1) Abdominal pain affecting : Code(s): O26.899 - Other specified related conditions, unspecified trimester; R10.9 - Unspecified abdominal pain Status: Acute
== END 2023-08-18 17:25 | disposition home or self-care (01) ==
PROVIDERS: Admitting Provider Obstetrics & Gynecology; PCP Physician Assistant; Visit Provider Obstetrics & Gynecology
DX: O26.893 Other specified pregnancy related conditions, third trimester (principal); R10.9 Unspecified abdominal pain; Z3A.33 33 weeks gestation of pregnancy
CPT/HCPCS: G0378; G0379

== ENCOUNTER 2023-08-21 10:32 | Inpatient (IN) | payer BC, MEDICAID, SELFPAY ==
[2023-08-21] VITALS (21 sets, daily range): BP systolic 85–114; BP diastolic 33–72; PULSE 88–134; TEMP 36.5–37.1; BMI 25.0
[2023-08-21] MEDS: BETAMETHASONE SOD PHOS/ACETATE 30 MG/5 ML VIAL 12 MG IM (12:04)
[2023-08-21 12:05] LABS: Appearance Urine Turbid (Clear); Bacteria Urine Rare /hpf; Bilirubin Urine Negative (Negative); Blood Urine Negative (Negative); Color Urine Yellow (Yellow); Glucose Urine UA 2+ mg/dL (Negative); Ketones Urine Negative (Negative); Leukocyte Esterase Ur 2+ LEU/UL (Negative); Mucus Urine Present /lpf; Need Manual Microscopic Need Manual; Nitrate Urine Negative (Negative); Protein Urine Trace mg/dL (Negative); RBC Urine 0-2 /hpf (0-2); Specific Grav Ur 1.022 (1.001-1.035); Squamous Epithelial Cell Urine Moderate /hpf (Few); WBC Urine 21-50 /hpf
[2023-08-21 12:07] LABS: Non Pathogenic Casts Not Present
[2023-08-21 12:09] LABS: Add Urine Microscopic? YES
[2023-08-21] MEDS: LACTATED RINGERS 1,000 ML 999 ML IV CONT (12:58)
[2023-08-21] MEDS: TERBUTALINE SULFATE 1 MG/ML VIAL 0.25 MG SUB-Q (13:35)
[2023-08-21] MEDS: AMPICILLIN 2 GM/NS 100 ML 2 GM/100 ML BAG IVPB (13:42)
[2023-08-21] MEDS: ACETAMINOPHEN 500 MG TABLET 1000 MG PO (15:49)
--- NOTE | 2023-08-21 16:45 | PM.IMHP ---
H&P: HPI History of Present Illness Date/Time: 08/21/23 16:45 Chief Complaint: contractions Narrative: Rosas is a 23yo @ 34.2wks who presented to clinic this morning for routine care and reported frequent gordo greco and cramping. She had been to L&D on 08/18/23 with irritability that resolved with PO hydration and was monitored for 2+ hours without any change in cervix (was 1.5/50/-3). Today on exam, she was 3.5-4/50/-3 (first check around 1000). She was found to be jordan frequently and was given ANCS x1, a dose of AMP and has been given terb. She continues to feel mild cramping sensations and irritability is still seen. Cervix is still unchanged now at 1645. She denies vaginal bleeding, LOF, dysuria. She has been drinking a significant amount of more fluids this week. Baby is moving a lot. Her is complicated by: - H/o IUGR with prior two daughters (this has EFW of 43%ile) - desire for permanent sterilization; [place] 05/14/23 Review of Systems Constitutional: Constitutional: Denies chills, Denies fever(s) and Denies headache(s) Eyes: Eyes: Denies change in vision ENT: Denies headache(s) Cardiovascular: Cardiovascular: Denies chest pain and Denies dyspnea Respiratory: Respiratory: Denies dyspnea Genitourinary: Genitourinary: Denies abnormal vaginal bleeding and Denies vaginal discharge Neurologic: Denies headache(s) Psychiatric: Psychiatric: Denies anxiety and Denies depression [facility] Past Medical History Medical History Encounter for removal of intrauterine contraceptive device (IUD) (~09/2020) HSV-1 (herpes simplex virus 1) infection No active medical problems Vaginal discharge during in third trimester Surgical History Surgical History H/O gynecological procedure Mirena iud insertion 02/20/2022 Device expelled it self on 12/24/2022 see pt case -nm Status post colposcopy Family History Family History Grandparent Diabetes mellitus Hypertension Social History Social History Smoking status: Never smoker Second hand tobacco smoke exposure: No Alcohol intake: never Substance use: never Lack of Transportation: No Lack of Food: Never True Current Housing: I Have Housing Concerned About Future Housing: No Difficulty Paying Gas/Electric Bills: No Difficulty Paying for Meds: No Currently Unemployed: No Education: High School Diploma/GED Difficulty w/ Childcare or Family Care: No Living arrangements: with family Occupation/Education: unemployed Gender identity (if verbalized by the patient): Female Sexual Orientation (if Verbalized by the Patient): Straight or Heterosexual Spiritual care concerns: No Meds Home Medications and Allergies Home Medications Medication Instructions Recorded Confirmed Type prenat.vits,kristina,[id number]-kiho-tojmd 1 tablet PO DAILY 03/17/23 08/21/23 History Allergies Allergy/AdvReac Type Severity Reaction Status Date / Time No Known Allergies Allergy Verified 08/21/23 09:52 Vital Signs Vital Signs - 24 hr 08/21/23 11:04 08/21/23 11:38 08/21/23 11:45 Temperature Pulse Rate 106 H 96 Blood Pressure 105/67 105/65 Oxygen Delivery Room Air 08/21/23 12:00 08/21/23 12:15 08/21/23 12:30 Temperature Pulse Rate 102 H 99 96 Blood Pressure 105/60 107/72 105/62 Oxygen Delivery 08/21/23 12:45 08/21/23 13:00 08/21/23 13:35 Temperature Pulse Rate 88 95 102 H Blood Pressure 106/62 108/69 109/66 Oxygen Delivery 08/21/23 14:01 08/21/23 15:00 08/21/23 16:00 Temperature 98.1 F Pulse Rate 132 H 122 H 126 H Blood Pressure 103/59 L 104/55 L 100/55 L Oxygen Delivery 08/21/23 13:04 Temperature 97.7 F Pulse Rate B
[2023-08-21] MEDS: NIFEdipine 10 MG CAPSULE PO (16:53)
[2023-08-21] MEDS: LACTATED RINGERS 1,000 ML 125 ML IV CONT ×2 (17:32→22:10)
[2023-08-22] VITALS (92 sets, daily range): BP systolic 78–159; BP diastolic 30–143; PULSE 65–136; RESP 18; TEMP 36.2–37.1; O2SAT 80–100
--- NOTE | 2023-08-22 01:53 | P.PNOB_ITS ---
OB - PN: Subj Subjective Date/time seen: 08/22/23 01:53 Interval history: Called to review tracing due to occasional decels. Tracing reviewed, currently cat 2, with occasional variables, Their was a bradycardic episode at approximately 7pm with intermittent variables. Baseline now 130s.Occasional variable. Mininmal contractions. Continue monitoring. OB - PN: Obj Data Labs Labs: Laboratory Results - last 24 hr 08/21/23 11:32 Urine Color Yellow Urine Appearance Turbid H Urine pH 6.0 Ur Specific [place] 1.022 Urine Protein Trace Urine Glucose (UA) 2+ H Urine Ketones Negative Ur Blood (Man) Negative Urine Nitrate Negative Urine Bilirubin Negative Urine Urobilinogen 1.0 Add Ur Microanalysis Need manual Leukocyte Esterase Rfl 2+ H Urine RBC 0-2 Urine WBC 21-50 H Ur Squamous Epith Cells Moderate Urine Bacteria Rare Urine Casts Not present Urine Mucus Present OB - PN A/P Time Spent With Patient Time: Total time spent is greater than 50% in coordination of care (as documented) at patient's floor/unit and/or counseling patient:
[2023-08-22] MEDS: LACTATED RINGERS 1,000 ML 125 ML IV CONT ×3 (06:32→15:06)
--- NOTE | 2023-08-22 08:46 | P.PNOB_ITS ---
OB - PN: Subj Subjective Date/time seen: 08/22/23 08:46 Narrative: Monitored overnight and had variable and late decelerations and a bradycardic event to the 50's. She continues to have late decelerations after contractions. Still having contractions every 5-6 minutes. She will be steroid complete at noon. No VB or LOF. ROM+ overnight was negative. OB - PN: Obj Data Labs Labs: Laboratory Results - last 24 hr 08/21/23 11:32 Urine Color Yellow Urine Appearance Turbid H Urine pH 6.0 Ur Specific [place] 1.022 Urine Protein Trace Urine Glucose (UA) 2+ H Urine Ketones Negative Ur Blood (Man) Negative Urine Nitrate Negative Urine Bilirubin Negative Urine Urobilinogen 1.0 Add Ur Microanalysis Need manual Leukocyte Esterase Rfl 2+ H Urine RBC 0-2 Urine WBC 21-50 H Ur Squamous Epith Cells Moderate Urine Bacteria Rare Urine Casts Not present Urine Mucus Present OB - PN A/P Assessment and Plan (1) Late deceleration of heart rate: Status: Acute (2) Premature cervical dilation in third trimester: Code(s): O34.33 - Maternal care for cervical incompetence, third trimester Status: Acute Plan - Will give dose of betamethasone now (4 hours early) - Will proceed with induction of labor due to recurrent heart decels after 34wks with advanced cervical dilation and steroid completion--- will proceed with low dose pitocin; plan for early epidural - Will start ampicillin for GBS unknown - Pt aware that if heart tones worsen, may be for primary , at which point, she still desires to proceed with salpingectomy ([place] ster[place] forms [place] 05/14/23) Time Spent With Patient Time: Total time spent is greater than 50% in coordination of care (as documented) at patient's floor/unit and/or counseling patient: Exam Const: General: cooperative, healthy appearing, comfortable and no acute distress Resp: Effort & Inspection: normal respiratory effort GI: GI Palp: No abdominal tenderness : Other: FHTs: 130's/ mod migue/ + accels/ variable and occasional late decelerations - cat 2 TOCO: ctx's q5-6 min Cervix: 4/50/-3 Membranes: intact Presentation: cephalic
[2023-08-22] MEDS: BETAMETHASONE SOD PHOS/ACETATE 30 MG/5 ML VIAL 12 MG IM (09:26)
[2023-08-22] MEDS: OXYTOCIN 30 UNITS/NS 500 ML 30 UNITS/500 ML BAG IV CONT (10:39)
[2023-08-22] MEDS: AMPICILLIN 2 GM/NS 100 ML 2 GM/100 ML BAG IVPB (10:40)
[2023-08-22 11:13] LABS: Basophils Percent Auto 0.1 % (0.2-1.2); Hematocrit 24.9 % (37.0-47.0); Hemoglobin 7.4 g/dL (12.0-15.0); Immature Granulocyte Absolute 0.23 K/mm3 (0.00-0.031); Immature Granulocyte Percent A 1.7 % (0-0.5); Lymphocytes Absolute Auto 1.22 K/mm3 (0.9-3.2); Lymphocytes Percent Auto 9.1 % (18.3-44.2); Mean Corpuscular HGB Conc 29.7 g/dl (32-36); Mean Corpuscular Hemoglobin 24.6 pg (26-34); Mean Corpuscular Volume 82.7 fl (80-100); Mean Platelet Volume 10.1 fl (7.4-10.4); Monocytes Absolute Auto 0.6 K/mm3 (0.1-0.6); Monocytes Percent Auto 4.2 % (2.6-8.5); Neutrophils Absolute Auto 11.3 K/mm3 (1.3-6.7); Neutrophils Percent Auto 84.9 % (45.5-73.1); Nucleated Red Blood Cells Perc 0.3 % (0.0-0.2); Platelet Count Result 211 k/mm3 (150-375); Red Blood Count 3.01 M/mm3 (4.2-5.4); Red Cell Distribution Width 15.4 % (11.5-14.5); White Blood Count 13.4 K/mm3 (4.5-10.0)
[2023-08-22 12:00] LABS: Platelet Estimate Adequate (Adequate)
[2023-08-22 12:01] LABS: Anisocytosis 2+ (NORMAL); Schistocytes None Seen (NORMAL)
[2023-08-22 12:02] LABS: Hypochromasia 2+ (NORMAL); Ovalocytes 1+ (NORMAL); Tear Drop Cells 1+ (NORMAL)
--- NOTE | 2023-08-22 12:52 | LDADM ---
This patient, Rosas Estrada, was admitted to Labor/Delivery/Recovery 103 on 08/22/23 at 09:30. Plans for labor, pain management and were discussed with patient. Patient/family oriented to hospital policies and general routines including ID bracelet, bed and alarms, visiting hours, pain management, procedures, bathroom and other care routines, personal items, smoking policy, room service/diet and guest tray routines, infant security routines, and visiting hours. Patient/Family are encouraged to report perceived risks to care and to ask questions if they do not understand what they are told or what they should do. See OBIX for further documentation.
[2023-08-22] MEDS: AMPICILLIN 1 GM/NS 50 ML 1 GM/50 ML BAG IVPB (15:00)
--- NOTE | 2023-08-22 15:23 | WPDANESEPP ---
Anes - Eval Pre Procedure Procedure: Pain during labor Date/Time: 08/22/23 15:23 Surgeon: Rafa Preop Diagnosis: Pain during labor Pre Op Diagnosis: Induction of Labor Patient Data Age: 23 Gender: F Height: 1.55 m Weight: 60 kg Last Vital Signs Temp 37.1 C 08/21/23 18:52 Pulse 88 08/22/23 15:15 BP 110/54 L 08/22/23 15:15 O2 Del Method Room Air 08/22/23 09:30 Allergies Allergy/AdvReac Type Severity Reaction Status Date / Time No Known Allergies Allergy Verified 08/21/23 09:52 Home Medications Medication Instructions Recorded Confirmed Type prenat.vits,kristina,uwx-[id number] 1 tablet PO DAILY 03/17/23 08/21/23 History Laboratory Tests 08/22/23 11:08 WBC 13.4 H K/mm3 (4.5-10.0) RBC 3.01 L M/mm3 (4.2-5.4) Hgb 7.4 L g/dL (12.0-15.0) Hct 24.9 L % (37.0-47.0) MCV 82.7 fl (80-100) MCH 24.6 L pg (26-34) MCHC 29.7 L g/dl (32-36) RDW 15.4 H % (11.5-14.5) Plt Count 211 k/mm3 (150-375) MPV 10.1 fl (7.4-10.4) Immature Gran % (Auto) 1.7 H % (0-0.5) Neut % (Auto) 84.9 H % (45.5-73.1) Lymph % (Auto) 9.1 L % (18.3-44.2) [place] % (Auto) 4.2 % (2.6-8.5) Eos % (Auto) 0.0 % (0-4.4) Baso % (Auto) 0.1 L % (0.2-1.2) Lymph # (Auto) 1.22 K/mm3 (0.9-3.2) [place] # (Auto) 0.6 K/mm3 (0.1-0.6) Eos # (Auto) 0.0 K/mm3 (0-0.3) Baso # (Auto) 0.0 K/mm3 (0.0-0.1) Abs Immat Gran (auto) 0.23 H K/mm3 (0.00-0.031) Absolute Neuts (auto) 11.3 H K/mm3 (1.3-6.7) Absolute Nucleated RBC 0.0 K/mm3 (0.0-0.012) Nucleated RBC % 0.3 H % (0.0-0.2) Platelet Estimate Adequate (Adequate) Hypochromasia 2+ (NORMAL) Anisocytosis 2+ (NORMAL) Tear Drop Cells 1+ (NORMAL) Ovalocytes 1+ (NORMAL) Schistocytes None seen (NORMAL) RPR Pending Blood Type A Positive Antibody Screen Negative Patient hx anesthesia problems: none Family hx anesthesia problems: none Results Review: All pre-operative results and documents have been reviewed as part of the pre-operative evaluation. [facility] Past Medical History Medical History Encounter for removal of intrauterine contraceptive device (IUD) (~09/2020) HSV-1 (herpes simplex virus 1) infection No active medical problems Vaginal discharge during in third trimester Surgical History Surgical History H/O gynecological procedure Mirena iud insertion 02/20/2022 Device expelled it self on 12/24/2022 see pt case -nm Status post colposcopy Family History Family History Grandparent Diabetes mellitus Hypertension Social History Social History Smoking status: Never smoker Second hand tobacco smoke exposure: No Alcohol intake: never Substance use: never Lack of Transportation: No Lack of Food: Never True Current Housing: I Have Housing Concerned About Future Housing: No Difficulty Paying Gas/Electric Bills: No Difficulty Paying for Meds: No Currently Unemployed: No Education: High School Diploma/GED Difficulty w/ Childcare or Family Care: No Living arrangements: with family Occupation/Education: unemployed Gender identity (if verbalized by the patient): Female Sexual Orientation (if Verbalized by the Patient): Straight or Heterosexual Spiritual care concerns: No Exam Day of Procedure 08/22/23 15:23 Patient weight: normal Airway: Mallampati scale class II Neurological: alert and oriented
--- NOTE | 2023-08-22 17:08 | P.PNOB_ITS ---
Pain Control Date/time seen: 08/22/23 17:08 Pain control: tolerating well and epidural Pelvic Exam Dilation (cm): 6 Effacement (%): 70 station: -1 Amniotic membrane status: Ruptured Contractions Monitor mode: Internal Contraction pattern: Regular Contraction intensity: Moderate Status status: Category ll Comments: Recurrent late decelerations Assessment and Plan Assessment: induction ongoing Plan: Comments: Induction of labor was being attempted for nonreassuring heart tracing at 34 weeks. heart tracings continued to be nonreassuring. Patient will have episodes of minimal variability. There also has been recurrent late de celerations. Patient has been repositioned multiple times. Pitocin was at a dose of 2. heart rate would not tolerate increased dose of Pitocin. Given that the patient is remote from delivery and the fetus is premature, discuss concerns with stressing the fetus further. Recommended proceeding with delivery for intolerance of labor. Risks, benefits, alternatives discussed. Patient agrees to proceed with delivery for intolerance of labor.
--- NOTE | 2023-08-22 17:59 | P.PNAN_ITS ---
Anes - Eval Final PreProcedure Day of Procedure 08/22/23 17:59 Patient weight: normal Heart: regular rate and rhythm Lungs: clear to auscultation and normal air movement Airway: Mallampati scale class II Neurological: alert and oriented Last oral intake: >/= 8 hours ASA classification: II Emergent: yes Anesthetic plan: proceed Anesthesia type and monitoring: regional epidural and standard monitoring Other findings: To C/S for non reassuring heart tones Results Review: All pre-operative results and documents have been reviewed as part of the pre- operative evaluation. Informed Consent: The patient's anesthetic plan and its attendant risks and benefits were discussed with the patient/family/POA. Questions were solicited and answers provided to the satisfaction of the patient/family/POA.
--- NOTE | 2023-08-22 18:16 | W.PM.PROC2 ---
Procedure Note - Detailed Date of Procedure 08/22/23 Pre-op Diagnosis Induction of Labor nonreassuring FHT intolerance to labor anemia Post-op Diagnosis Same Procedure Performed Primary section Surgeon Omid Swann MD Anesthesia General Indications intolerance to labor, nonreassuring FHT Description of Procedure The patient was taken to the operating room. Patient had an epidural in place. The patient was placed in a supine position with a slight left lateral tilt. A donis catheter was placed with return of clear urine. A Bovie grounding pad was placed. Surgical prep was performed and surgical drapes were placed. A surgical time out was performed. A Pfannenstiel skin incision was then made with the scalpel and carried through to the underlying layer of fascia. The fascia was then incised in the midline and the incision was extended laterally with the Weir scissors. The superior aspect of the fascia was then grasped with the Monica clamps, elevated, and the underlying rectus muscles dissected off bluntly and sharply. Attention was then turned to the inferior aspect of this incision which, in a similar fashion, was grasped, tented up with the Monica clamps, and the rectus muscles dissected off both bluntly and sharply. The rectus muscles were then in the midline. The peritoneum was identified and entered bluntly. The peritoneal incision was then extended superiorly and inferiorly with good visualization of the bladder. A Mobius ring retractor was placed for better visualization. The uterus was inspected for rotation. A low-transverse uterine incision was made sharply with the scalpel and entry was made into the uterine cavity. The uterine incision was extended laterally bluntly. The bladder blade was removed and the fetus was delivered atraumatically. The nose and mouth were suctioned with a bulb syringe. The umbilical cord was clamped twice and cut. The was handed off to the waiting staff. A second segment of umbilical cord was clamped and cut for cord blood gasses. Cord blood was collected for determination of the blood type and for direct Bean. The placenta was delivered manually without difficulty. The placenta appeared grossly normal and complete. The uterus was cleared of all clots and debris. The uterine incision was repaired using 0-Monocryl suture in a running fashion. A second layer of 0 Monocryl suture was used in an imbricating fashion to obtain excellent hemostasis and uterine strength. The uterine closure was inspected for hemostasis. The posterior aspect of the uterus and the broad ligaments were inspected and the posterior cul-de-sac cleared of fluid and blood clots. Attention was now turned to the fallopian tubes bilateral for the bilateral salpingectomy for permanent sterilization. The Right fallopian tube was identified and followed out to the fimbriae. The tube was grasped with jasper retractors and elevated to visualize the mesosalpinx. The fallopian tube was transected along its inferior mesosalpinx with the Ligasure device. The Fallopian tube was then completely transected and removed. Similar procedure was performed on the Left fallopian tube. The surgical sites were noted to be hemostatic. The uterine closure was again inspected and found to be hemostatic. The uterus was returned to the abdominal cavity. The pericolic gutters were inspected and were cleared of all blood clots and debris. The uterine closure was then re inspected to ensure hemostasis as were all subfascial tissues. The peritoneum was closed using 3-0 vicryl in a running fashion. The fascia was reapproximated with 0-vicryl in a running fashion. The subcutaneous tissue was irrigated and hemostasis achieved with electrocautery. The skin was re-approximated with 4-0 monocryl. A sterile dressing was applied to the wound. The patient tolerated the procedure well. Sponge, lap and needle counts were c
--- NOTE | 2023-08-22 20:16 | PC.NURSE ---
Patient transferred to post room # [id number] via ( stretcher ). Support person present. Oriented to unit, room, information board, rooming in, admission packet and security measures. Patient verbalizes understanding.
[2023-08-22] MEDS: LORATADINE 10 MG TABLET PO (22:14)
[2023-08-23] VITALS (9 sets, daily range): BP systolic 90–122; BP diastolic 50–95; PULSE 57–81; RESP 16–18; TEMP 36.4–37.2; O2SAT 96–100
[2023-08-23] MEDS: HYDROcodone/acetaminophen (*CRX) 5-325 MG TABLET 1 TAB PO ×4 (02:40→22:36)
[2023-08-23] MEDS: IBUPROFEN 600 MG TABLET PO (02:40)
[2023-08-23 05:59] LABS: Basophils Percent Auto 0.1 % (0.2-1.2); Hematocrit 29.3 % (37.0-47.0); Hemoglobin 8.7 g/dL (12.0-15.0); Immature Granulocyte Absolute 0.45 K/mm3 (0.00-0.031); Immature Granulocyte Percent A 2.4 % (0-0.5); Lymphocytes Absolute Auto 1.21 K/mm3 (0.9-3.2); Lymphocytes Percent Auto 6.5 % (18.3-44.2); Mean Corpuscular HGB Conc 29.7 g/dl (32-36); Mean Corpuscular Hemoglobin 25.5 pg (26-34); Mean Corpuscular Volume 85.9 fl (80-100); Mean Platelet Volume 11.2 fl (7.4-10.4); Monocytes Absolute Auto 1.4 K/mm3 (0.1-0.6); Monocytes Percent Auto 7.7 % (2.6-8.5); Neutrophils Absolute Auto 15.6 K/mm3 (1.3-6.7); Neutrophils Percent Auto 83.3 % (45.5-73.1); Nucleated Red Blood Cells Absolute Auto 0.2 K/mm3 (0.0-0.012); Platelet Count Result 215 k/mm3 (150-375); Red Blood Count 3.41 M/mm3 (4.2-5.4); White Blood Count 18.7 K/mm3 (4.5-10.0)
[2023-08-23 07:53] LABS: Anisocytosis 1+ (NORMAL); Hypochromasia 1+ (NORMAL); Platelet Estimate Adequate (Adequate); Schistocytes None Seen (NORMAL)
[2023-08-23] MEDS: POLYSACCHARIDE IRON COMPLEX 150 MG CAPSULE PO ×2 (08:47→17:29)
[2023-08-23] MEDS: DOCUSATE SODIUM 100 MG CAPSULE PO ×2 (08:47→17:29)
--- NOTE | 2023-08-23 10:48 | PM.OBPNVD ---
OB - PN: Subj Subjective Date/time seen: 08/23/23 10:48 Patient comments: no complaints, pain well controlled, tolerating diet and flatus present Narrative: Pt doing well this morning. Resting comfortably in bed. Pt feels much better after blood transfusion. She denies any dizziness. She denies any heavy bleeding. Pt's was transferred to [facility] for prematurity. OB - PN: Obj Data Labs 08/23/23 05:39 Labs: Laboratory Results - last 24 hr 08/22/23 08/23/23 11:08 05:39 WBC 13.4 H 18.7 H RBC 3.01 L 3.41 L Hgb 7.4 L 8.7 L Hct 24.9 L 29.3 L MCV 82.7 85.9 MCH 24.6 L 25.5 L MCHC 29.7 L 29.7 L RDW 15.4 H 15.0 H Plt Count 211 215 MPV 10.1 11.2 H Immature Gran % (Auto) 1.7 H 2.4 H Neut % (Auto) 84.9 H 83.3 H Lymph % (Auto) 9.1 L 6.5 L [place] % (Auto) 4.2 7.7 Eos % (Auto) 0.0 0.0 Baso % (Auto) 0.1 L 0.1 L Lymph # (Auto) 1.22 1.21 [place] # (Auto) 0.6 1.4 H Eos # (Auto) 0.0 0.0 Baso # (Auto) 0.0 0.0 Abs Immat Gran (auto) 0.23 H 0.45 H Absolute Neuts (auto) 11.3 H 15.6 H Absolute Nucleated RBC 0.0 0.2 H Nucleated RBC % 0.3 H 1.0 H Platelet Estimate Adequate Adequate Hypochromasia 2+ 1+ Anisocytosis 2+ 1+ Tear Drop Cells 1+ Ovalocytes 1+ Schistocytes None seen None seen Blood Type A Positive Antibody Screen Negative Crossmatch See Detail OB - PN A/P Plan day: 1 Plan: routine care Comments: patient doing well H/H , will administer 1 u pRBC, repeat CBC in AM afebrile, VSS incision C/D/I donis removed, voiding spontaneously Pt's infant was transferred for prematurity, OK for maternal day pass to visit continue routine post op care Time Spent With Patient Time: Total time spent is greater than 50% in coordination of care (as documented) at patient's floor/unit and/or counseling patient: Time with patient: less than 15 minutes Review of Systems Constitutional: Constitutional: Reports no additional constitutional complaints Cardiovascular: Cardiovascular: Reports no additional cardiovascular complaints Respiratory: Respiratory: Reports no additional respiratory complaints Gastrointestinal: Gastrointestinal: Reports no additional gastrointestinal complaints Genitourinary: Genitourinary: Reports no additional female genitourinary complaints Exam Const: General: comfortable and no acute distress Resp: Effort & Inspection: normal respiratory effort Auscultation: clear to auscultation bilaterally Cardio: Rate: regular rate GI: GI Palp: Yes Soft to palpation, Yes Tenderness to palpation present (GI) (around incision ) and No Guarding due to palpation present (GI) Auscultation: normal bowel sounds Other: incision C/D/I, covered with Dermabond Psych: Appearance: grossly normal Mental Status: mental status grossly normal Affect: normal affect
--- NOTE | 2023-08-23 11:38 | WPDANLDPN2 ---
Anes-Prog Note L&D Date/Time: 08/23/23 11:38 Comfortable throughout: section Neuraxial method: spinal Epidural/Spinal procedure site: clean & non-tender Neuro status: Neuro function grossly intact. Cardiovascular status: normal Respiratory status: normal Airway patency: baseline Mental status: baseline Post-Op hydration status: normal Vital Signs: Last Vital Signs Temp 36.8 C 08/23/23 01:30 Pulse 57 L 08/23/23 01:30 Resp 18 08/23/23 01:30 BP 90/54 L 08/23/23 01:30 Pulse Ox 98 08/23/23 01:30 O2 Del Method Room Air 08/23/23 01:30 Pain score (VAS): 3 I/O: Intake & Output 08/22/23 08/23/23 08/23/23 23:59 07:59 15:59 Intake Total 350 400 Output Total 650 Balance 350 -250 Post-procedural complaints: none Patient feedback: Patient satisfied with anesthetic care.
--- NOTE | 2023-08-23 11:39 | WPDANLDNPN2 ---
Anes-Prog Note L&D-Neuraxial Date/Time: 08/23/23 11:39 Neuraxial medications: intrathecal PF morphine Opiod-related complaints: none Patient feedback: Patient satisfied with post-operative pain management.
[2023-08-23] MEDS: SODIUM CHLORIDE 0.9% IV 250 ML 30 ML IV CONT (12:50)
--- NOTE | 2023-08-23 17:30 | PC.NURSE ---
Pt left for therapeutic absence (to see baby in NICU) at 08/23/23 17:30.
--- NOTE | 2023-08-23 22:30 | PC.NURSE ---
Pt returned from therapeutic absence (to see baby in NICU) at 08/23/23 [id number].
[2023-08-24] MEDS: HYDROcodone/acetaminophen (*CRX) 5-325 MG TABLET 1 TAB PO ×4 (02:30→15:09)
[2023-08-24] MEDS: IBUPROFEN 600 MG TABLET PO (05:24)
[2023-08-24 05:48] LABS: Hematocrit 32.5 % (37.0-47.0); Hemoglobin 9.7 g/dL (12.0-15.0); Mean Corpuscular HGB Conc 29.8 g/dl (32-36); Mean Corpuscular Hemoglobin 26.3 pg (26-34); Mean Corpuscular Volume 88.1 fl (80-100); Mean Platelet Volume 12.2 fl (7.4-10.4); Platelet Count Result 154 k/mm3 (150-375); Red Blood Count 3.69 M/mm3 (4.2-5.4); Red Cell Distribution Width 15.4 % (11.5-14.5)
--- NOTE | 2023-08-24 07:58 | PM.OBPNVD ---
OB - PN: Subj Subjective Date/time seen: 08/24/23 07:58 Interval history: Pt doing well this AM. She denies any bleeding. She is feeling better after blood transfusion. [facility] She reported some pain after and is requesting to stay another night. Patient comments: no complaints, pain well controlled, tolerating diet and flatus present OB - PN: Obj Data Labs 08/24/23 05:38 Labs: Laboratory Results - last 24 hr 08/22/23 08/24/23 11:08 05:38 WBC 16.0 H RBC 3.69 L Hgb 9.7 L Hct 32.5 L MCV 88.1 MCH 26.3 MCHC 29.8 L RDW 15.4 H Plt Count 154 MPV 12.2 H Blood Type A Positive Antibody Screen Negative Crossmatch See Detail OB - PN A/P Plan day: 2 Plan: routine care Comments: patient doing well H/H ., continue iron supplementation afebrile, VSS incision C/D/I donis removed, voiding spontaneously continue routine post op care Time Spent With Patient Time: Total time spent is greater than 50% in coordination of care (as documented) at patient's floor/unit and/or counseling patient: Time with patient: less than 15 minutes Review of Systems Constitutional: Constitutional: Reports no additional constitutional complaints Cardiovascular: Cardiovascular: Reports no additional cardiovascular complaints Respiratory: Respiratory: Reports no additional respiratory complaints Gastrointestinal: Gastrointestinal: Reports no additional gastrointestinal complaints Genitourinary: Genitourinary: Reports no additional female genitourinary complaints Exam Const: General: comfortable and no acute distress Resp: Effort & Inspection: normal respiratory effort Auscultation: clear to auscultation bilaterally Cardio: Rate: regular rate GI: GI Palp: Yes Soft to palpation, Yes Tenderness to palpation present (GI) (around incision ) and No Guarding due to palpation present (GI) Auscultation: normal bowel sounds Other: incision C/D/I, covered with Dermabond Psych: Appearance: grossly normal Mental Status: mental status grossly normal Affect: normal affect
[2023-08-24 08:20] VITALS: BP 103/59; PULSE 62; RESP 16; TEMP 36.6; O2SAT 99
[2023-08-24] MEDS: TETANUS,DIPHTHERIA,AC PERTUSSIS ADULT (0.5 ML) BOOSTRIX IM (08:35)
[2023-08-24] MEDS: POLYSACCHARIDE IRON COMPLEX 150 MG CAPSULE PO (08:36)
[2023-08-24] MEDS: DOCUSATE SODIUM 100 MG CAPSULE PO (08:36)
[2023-08-24] MEDS: MEASLES,MUMPS,RUBELLA VACCINE 0.5 ML VIAL SUB-Q (08:53)
--- NOTE | 2023-08-24 09:48 | PM.OBDSVD ---
DS: Admitting Diagnosis Discharge Date 08/24/23 Admitting Diagnosis labor non-reassuring tracing DS: Discharge Diagnosis Discharge Diagnosis (1) delivery delivered: Code(s): O82 - Encounter for delivery without indication Status: Acute OB - DS: Summary OB Procedures : None OB Procedures Intrapartum: OB Procedures: : None Peripartum Data Infant Delivery Method: Section Procedures: Procedures Operation Date: 08/22/23 17:10 Actual Procedure Side Surgeon p Section Omid Swann MD complications: none and transfusion Status at Discharge Functional status at discharge: independent ambulation Overall status at discharge: patient is progressing back to baseline Time Spent with Patient Time attestation: Total time spent providing and/or coordinating discharge services: Time spent: Less than 30 minutes Exam Const: General: comfortable and no acute distress Resp: Effort & Inspection: normal respiratory effort Auscultation: clear to auscultation bilaterally Cardio: Rate: regular rate GI: Inspection: non-distended GI Palp: Yes Soft to palpation, No Firmness to palpation present (GI), Yes Tenderness to palpation present (GI) (mild tenderness over incision ) and No Guarding due to palpation present (GI) Auscultation: normal bowel sounds Psych: Appearance: grossly normal Mental Status: mental status grossly normal DS: Data Data Completed and Pending Pending studies at discharge: Pending at discharge 08/22/23 18:43 Surgical [PTH] Routine Labs on day of discharge: Labs from last 24 hours 08/24/23 08/22/23 05:38 11:08 WBC 16.0 H RBC 3.69 L Hgb 9.7 L Hct 32.5 L MCV 88.1 MCH 26.3 MCHC 29.8 L RDW 15.4 H Plt Count 154 MPV 12.2 H Blood Type A Positive Antibody Screen Negative Crossmatch See Detail Discharge Plan Discharge Discharging Clinician: Omid Swann Patient Disposition: Home, Self-Care Activity: as tolerated and pelvic rest Diet: regular Patient Instructions: Antibiotic Form, (DC) Stand Alone Forms: General Discharge Information Follow-up/Referrals: Kimberlyn Craig MD [Physician] - Discharge Medications: New oxycodone-acetaminophen 5-325 mg tablet 1 tablet PO Q6H PRN (Reason: pain) Qty: 28 0RF polysaccharide iron complex 150 mg iron Capsule 150 mg PO BIDWM Qty: 60 0RF ibuprofen 600 mg tablet 600 mg PO Q6H PRN (Reason: pain) Qty: 30 0RF Continued prenat.vits,kristina,vvo-lino-eohri Tablet 1 tablet PO DAILY Date of admission: 08/22/23 09:30 Primary Care Provider: NirajMiracle Admitting Provider: Kimberlyn Craig Attending physician on admission: Kimberlyn Craig Condition: Stable
[2023-08-24 21:57] LABS: Rapid Plasma Reagin Non-Reactive (NonReactive)
[2023-08-27 09:54] VITALS: BP 102/60; PULSE 78; RESP 18; TEMP 37.1; O2SAT 100
== END 2023-08-24 15:15 | disposition home or self-care (01) | DRG 785 ==
LOC: ANHOBPP 08-22 10:46 → ANHOB2 08-23 10:17 → ANHLDR 08-26 11:10 → ANHOB2 08-26 11:10
PROVIDERS: Admitting Provider Obstetrics & Gynecology; PCP Physician Assistant; Visit Provider Student in an Organized Health Care Education/Training Program
PROC: 10D00Z1 Extraction of Products of Conception, Low, Open Approach (ICD-10-PCS; CPT 59514; principal; 2023-08-22 17:10)
DX: O76 Abnormality in fetal heart rate and rhythm complicating labor and delivery (principal); O99.02 Anemia complicating childbirth; Z3A.34 34 weeks gestation of pregnancy; Z37.0 Single live birth; Z23 Encounter for immunization
CPT/HCPCS: 36415; 36430; 81001; 84112; 85025; 85027; 86592; 86850; 86900; 86901; 86923; 87086; 88302; 90471; 90686; 90710; 90715; A9270; G0008; G0378; J0290; J0702; J2274; J2590; J2795; J3105; J7050; J7120; P9016

== ENCOUNTER 2024-01-27 17:19 | Outpatient (CLI) | payer BC, MEDICAID, SELFPAY ==
[2024-01-27 18:38] LABS: Beta HCG Quantitative < 2.39 mIU/ML
== END 2024-01-27 17:20 | disposition home or self-care (01) ==
LOC: ANHLAB 17:21
PROVIDERS: PCP Physician Assistant; Visit Provider Obstetrics & Gynecology
DX: Z30.9 Encounter for contraceptive management, unspecified (principal)
CPT/HCPCS: 36415; 84702

== ENCOUNTER 2025-01-06 11:44 | Outpatient (CLI) | payer OTHER, SELFPAY ==
[2025-01-06 12:40] LABS: Basophils Absolute Auto 0.1 K/mm3 (0.0-0.1); Basophils Percent Auto 0.8 % (0.2-1.2); Eosinophils Absolute Auto 0.1 K/mm3 (0-0.3); Eosinophils Percent Auto 1.6 % (0-4.4); Hematocrit 37.6 % (37.0-47.0); Hemoglobin 11.7 g/dL (12.0-15.0); Immature Granulocyte Absolute 0.01 K/mm3 (0.00-0.031); Immature Granulocyte Percent A 0.1 % (0-0.5); Lymphocytes Absolute Auto 2.77 K/mm3 (0.9-3.2); Lymphocytes Percent Auto 39.1 % (18.3-44.2); Mean Corpuscular HGB Conc 31.1 g/dl (32-36); Mean Corpuscular Hemoglobin 26.1 pg (26-34); Mean Corpuscular Volume 83.7 fl (80-100); Mean Platelet Volume 11.1 fl (7.4-10.4); Monocytes Absolute Auto 0.5 K/mm3 (0.1-0.6); Monocytes Percent Auto 7.6 % (2.6-8.5); Neutrophils Absolute Auto 3.6 K/mm3 (1.3-6.7); Neutrophils Percent Auto 50.8 % (45.5-73.1); Platelet Count Result 286 k/mm3 (150-375); Red Blood Count 4.49 M/mm3 (4.2-5.4); Red Cell Distribution Width 15.8 % (11.5-14.5); White Blood Count 7.1 K/mm3 (4.5-10.0)
[2025-01-06 16:14] LABS: Iron 64 ug/dL (37-170)
[2025-01-06 16:42] LABS: Percent Iron Saturation 18 % (20-50)
[2025-01-06 16:51] LABS: Ferritin 8.67 ng/mL (6.24-137)
[2025-01-06 20:00] LABS: Folic Acid 7.4 ng/mL (2.76->20)
== END 2025-01-06 11:45 | disposition home or self-care (01) ==
LOC: ANHLAB 11:47
PROVIDERS: PCP Physician Assistant; Visit Provider Obstetrics & Gynecology
DX: N92.0 Excessive and frequent menstruation with regular cycle (principal); Z86.2 Personal history of diseases of the blood and blood-forming organs and certain disorders involving the immune mechanism
CPT/HCPCS: 36415; 82607; 82728; 82746; 83540; 83550; 85025

== ENCOUNTER 2025-04-20 14:37 | Outpatient (CLI) | payer OTHER, SELFPAY ==
[2025-04-20 17:17] LABS: Add Urine Microscopic? YES; Appearance Urine Cloudy (Clear); Bacteria Urine 3+ /hpf; Bilirubin Urine Negative (Negative); Blood Urine 3+ (Negative); Color Urine Dark Yellow (Yellow); Glucose Urine UA Negative (Negative); Ketones Urine Trace mg/dL (Negative); Leukocyte Esterase Ur 2+ LEU/UL (Negative); Need Manual Microscopic Reviewed; Nitrate Urine Negative (Negative); Protein Urine 2+ mg/dL (Negative); RBC Urine >100 /hpf (0-2); Specific Grav Ur 1.029 (1.001-1.035); Squamous Epithelial Cell Urine Few /hpf (Few); WBC Urine >100 /hpf (0-3); pH Urine 6.5 (5.0-9.0)
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
== END 2025-04-20 14:38 | disposition home or self-care (01) ==
LOC: ANHLAB 14:38
PROVIDERS: PCP Physician Assistant; Visit Provider Obstetrics & Gynecology
DX: R30.0 Dysuria (principal)
CPT/HCPCS: 81001; 87086